=== PATIENT | female | born 1950 | race Caucasian/White ===

== ENCOUNTER → 2016-02-29 | Outpatient (REF) | payer MEDICARE ==
[2016-02-29 20:02] LABS: ALBUMIN 3.9 GM/DL (3.2-5.2); ALKALINE PHOSPHATASE 123 U/L (45-117); ALT/SGPT 27 U/L (12-78); ANION GAP 7 MEQ/L (8-16); AST/SGOT 7 U/L (15-37); BILIRUBIN,TOTAL 0.2 MG/DL (0.2-1.0); BLOOD UREA NITROGEN 31 MG/DL (7-18); CALCIUM LEVEL 10.2 MG/DL (8.8-10.2); CARBON DIOXIDE LEVEL 23 MEQ/L (21-32); CHLORIDE LEVEL 113 MEQ/L (98-107); CREATININE FOR GFR 2.36 MG/DL (0.55-1.02); GLOMERULAR FILTRATION RATE 22.1 (>45); GLUCOSE, FASTING 82 MG/DL (80-110); SODIUM LEVEL 143 MEQ/L (136-145); TOTAL PROTEIN 6.9 GM/DL (6.4-8.2)
[2016-02-29 20:03] LABS: BASO % 0.6 % (0.0-1.0); EOS # 0.4 K/mm3 (0.0-0.50); EOS % 4.8 % (0.0-3.0); LARGE UNSTAINED CELL # 0.1 K/mm3 (0.0-0.4); LARGE UNSTAINED CELL % 1.5 % (0.0-4.0); LYMPH # 1.5 K/mm3 (1.5-4.5); LYMPH % 18.2 % (24.0-44.0); MEAN CORPUSCULAR HEMOGLOBIN 29.5 pg (27.0-33.0); MEAN CORPUSCULAR HGB CONC 31.3 g/dl (32.0-36.5); MEAN CORPUSCULAR VOLUME 94.3 fl (80.0-96.0); MONO # 0.5 K/mm3 (0.0-0.8); MONO % 6.5 % (0.0-5.0); NEUTROPHILS # 5.5 K/mm3 (1.8-7.7); NEUTROPHILS % 68.4 % (36.0-66.0); PLATELET COUNT, AUTOMATED 405 k/mm3 (150-450); POTASSIUM SERUM 5.9 MEQ/L (3.5-5.1); RED CELL DISTRIBUTION WIDTH 13.1 % (11.5-14.5)
[2016-03-02 19:05] LABS: CONTROL LINE INT CTR LINE PRESENT; HIV SCRN NEGATIVE (NEGATIVE); HIV SCRN1 NEGATIVE (NEGATIVE)
== END ==
LOC: M SFHCADAM 11:53
PROVIDERS: ATTEND Family Medicine
DX: D64.9 Anemia, unspecified (principal); E11.9 Type 2 diabetes mellitus without complications; Z11.4 Encounter for screening for human immunodeficiency virus [HIV]; Z23 Encounter for immunization
CPT/HCPCS: 80053; 83036; 85025; 87806; 90471; 90472; 90715; 90732; G0463

== ENCOUNTER → 2016-03-05 | Outpatient (REF) | payer MEDICARE ==
[2016-03-05 12:58] LABS: ALBUMIN 3.9 GM/DL (3.2-5.2); ALBUMIN/GLOBULIN RATIO 1.15 (1.00-1.93); BILIRUBIN,TOTAL 0.2 MG/DL (0.2-1.0); CALCIUM LEVEL 10.4 MG/DL (8.8-10.2); CREATININE FOR GFR 2.28 MG/DL (0.55-1.02); POTASSIUM SERUM 5.1 MEQ/L (3.5-5.1); TOTAL PROTEIN 7.3 GM/DL (6.4-8.2)
== END ==
LOC: M SFHCADAM 09:53
PROVIDERS: ATTEND Family Medicine
DX: N17.9 Acute kidney failure, unspecified (principal)
CPT/HCPCS: 80053; G0463

== ENCOUNTER → 2016-03-10 | Outpatient (REF) | payer MEDICARE ==
[2016-03-10 10:56] LABS: ALBUMIN 3.5 GM/DL (3.2-5.2); ALBUMIN/GLOBULIN RATIO 0.97 (1.00-1.93); BILIRUBIN,TOTAL 0.3 MG/DL (0.2-1.0); CALCIUM LEVEL 9.4 MG/DL (8.8-10.2); CREATININE FOR GFR 2.15 MG/DL (0.55-1.02); GLOMERULAR FILTRATION RATE 24.6 (>45); POTASSIUM SERUM 4.4 MEQ/L (3.5-5.1); TOTAL PROTEIN 7.1 GM/DL (6.4-8.2)
== END | disposition home or self-care (01) ==
LOC: M SFHCADAM 08:45
PROVIDERS: ATTEND Family Medicine
DX: N17.9 Acute kidney failure, unspecified (principal)

== ENCOUNTER → 2016-05-13 | Outpatient (REF) | payer MEDICARE | LOC: M LAB REF 16:31 | PROVIDERS: ATTEND Nurse Practitioner Family | DX: D51.9 Vitamin B12 deficiency anemia, unspecified (principal); E78.1 Pure hyperglyceridemia ==

== ENCOUNTER → 2016-05-26 | Outpatient (REF) | payer MEDICARE ==
[2016-05-26 10:36] LABS: PERCENT SATURATION 15.9 % (13.2-37.4)
[2016-05-26 11:55] LABS: FOLATE 5.3 NG/ML (>5.4)
== END ==
LOC: M LAB REF 10:12
PROVIDERS: ATTEND Nurse Practitioner Family
DX: D64.9 Anemia, unspecified (principal)

== ENCOUNTER → 2016-09-04 | Outpatient (REF) | payer MEDICARE ==
[2016-09-04 14:38] LABS: FERRITIN 527 NG/ML (8-252); PERCENT SATURATION 59.1 % (13.2-37.4); TOTAL IRON BINDING CAPACITY 264 UG/DL (250-450)
[2016-09-04 14:41] LABS: FOLATE > 24.0 NG/ML (>5.4)
== END ==
LOC: M LAB REF 13:40
PROVIDERS: ATTEND Nurse Practitioner Family
DX: D64.9 Anemia, unspecified (principal)

== ENCOUNTER → 2016-10-24 | Outpatient (REF) | payer MEDICARE | LOC: M LAB REF 16:34 | PROVIDERS: ATTEND Nurse Practitioner Family | DX: D51.9 Vitamin B12 deficiency anemia, unspecified (principal) ==

== ENCOUNTER → 2017-04-13 | Outpatient (REF) | payer MEDICARE ==
[2017-04-13 20:00] LABS: VITAMIN B12 LEVEL 692 PG/ML (247-911)
== END ==
LOC: M LAB REF 19:05
DX: D51.9 Vitamin B12 deficiency anemia, unspecified (principal)
CPT/HCPCS: 82607

== ENCOUNTER → 2017-07-16 | Outpatient (REF) | payer MEDICARE ==
[2017-07-17 12:31] LABS: HEPATITIS C VIRUS ABY INDEX < 0.0 INDEX (<0.8)
[2017-07-18 08:06] LABS: LDL DIRECT 149 mg/dL (0-99)
== END ==
LOC: M LAB REF 19:27
DX: Z01.89 Encounter for other specified special examinations (principal); E78.00 Pure hypercholesterolemia, unspecified
CPT/HCPCS: 86803

== ENCOUNTER → 2017-10-26 | Outpatient (REF) | payer MEDICARE ==
[2017-10-27 08:06] LABS: LDL DIRECT 114 mg/dL (0-99)
== END ==
LOC: M LAB REF 12:13
DX: E78.00 Pure hypercholesterolemia, unspecified (principal)
CPT/HCPCS: 83721

== ENCOUNTER → 2017-10-26 | Outpatient (REF) | payer MEDICARE ==
[2017-10-28 14:21] LABS: FERRITIN 655 NG/ML (8-252); IRON (FE) 85 UG/DL (50-170); TOTAL IRON BINDING CAPACITY 247 UG/DL (250-450)
[2017-10-28 17:42] LABS: PERCENT SATURATION 34.4 % (13.2-45.0)
== END ==
LOC: M LAB REF 10-28 12:34
DX: D64.9 Anemia, unspecified (principal)
CPT/HCPCS: 83550

== ENCOUNTER → 2017-11-27 | Outpatient (REF) | payer MEDICARE ==
[2017-11-27 16:26] LABS: C REACTIVE PROTEIN QUANTITATIV 0.86 MG/DL (0.00-0.30)
== END ==
LOC: M LAB REF 15:54
DX: I88.9 Nonspecific lymphadenitis, unspecified (principal)
CPT/HCPCS: 86140

== ENCOUNTER → 2017-11-30 | Outpatient (REF) | payer MEDICARE ==
[2017-11-30 17:39] LABS: C REACTIVE PROTEIN QUANTITATIV < 0.30 MG/DL (0.00-0.30)
== END ==
LOC: M LAB REF 16:43
DX: R79.82 Elevated C-reactive protein (CRP) (principal)
CPT/HCPCS: 86140

== ENCOUNTER → 2017-12-30 | Outpatient (REF) | payer MEDICARE ==
[2017-12-30 18:06] LABS: C REACTIVE PROTEIN QUANTITATIV 0.59 MG/DL (0.00-0.30)
== END ==
LOC: M LAB REF 16:51
DX: R79.82 Elevated C-reactive protein (CRP) (principal)
CPT/HCPCS: 86140

== ENCOUNTER → 2018-02-04 | Outpatient (REF) | payer MEDICARE ==
[2018-02-04 17:30] LABS: FERRITIN 530 NG/ML (8-252); IRON (FE) 78 UG/DL (50-170); PERCENT SATURATION 30.1 % (13.2-45.0); TOTAL IRON BINDING CAPACITY 259 UG/DL (250-450)
[2018-02-04 17:36] LABS: FOLATE > 24.0 NG/ML
[2018-02-04 20:21] LABS: VITAMIN B12 LEVEL 372 PG/ML
[2018-02-06 08:09] LABS: LDL DIRECT 103 mg/dL (0-99)
== END ==
LOC: M LAB REF 16:56
PROVIDERS: ATTEND Nurse Practitioner Family
DX: D64.9 Anemia, unspecified (principal); E78.00 Pure hypercholesterolemia, unspecified

== ENCOUNTER → 2018-02-19 | Outpatient (REF) | payer MEDICARE ==
[2018-02-21 08:06] LABS: HAPTOGLOBIN 242 mg/dL (34-200)
[2018-02-23 00:06] LABS: ANTINUCLEAR ANTIBODIES DIRECT Negative (Negative)
== END ==
LOC: M LAB REF 16:27
PROVIDERS: ATTEND Internal Medicine
DX: D50.9 Iron deficiency anemia, unspecified (principal); R79.82 Elevated C-reactive protein (CRP)

== ENCOUNTER 2018-04-20 14:00 | Emergency (ER) | payer MEDICARE ==
[~2018-04-20] VITALS: Ht 157.5 cm; Wt 75.9 kg
[~2018-04-20 14:00] MED LIST: AMIT25TA PO; ASPI1TAB PO; ATEN100T PO; D31000CA4 PO; FOLI400T PO; IRON27TA2 PO; MAGN1CAP PO; OMEP20CA3 PO; ROSU5TAB4 PO; VITA500C24 PO
[2018-04-20 14:28] LABS: BASO # 0.1 10^3/uL (0.0-0.2); BASO % 0.6 % (0.0-1.0); EOS # 0.2 10^3/uL (0.0-0.50); HEMATOCRIT 32.9 % (36.0-47.0); HEMOGLOBIN 10.8 g/dl (12.0-15.5); LYMPH % 17.6 % (24.0-44.0); MEAN CORPUSCULAR HEMOGLOBIN 31.7 pg (27.0-33.0); MEAN CORPUSCULAR HGB CONC 32.8 g/dl (32.0-36.5); MEAN CORPUSCULAR VOLUME 96.5 fl (80.0-96.0); MONO # 0.7 10^3/uL (0.0-0.8); MONO % 6.6 % (0.0-5.0); NEUTROPHILS # 7.9 10^3/uL (1.8-7.7); PLATELET COUNT, AUTOMATED 270 10^3/uL (150-450); RED BLOOD COUNT 3.41 10^6/uL (4.00-5.40); WHITE BLOOD COUNT 11.1 10^3/uL (4.0-10.0)
[2018-04-20 14:40] LABS: INR 1.08; PROTHROMBIN TIME 14.1 SECONDS (12.1-14.4)
[2018-04-20 14:41] LABS: PARTIAL THROMBOPLASTIN TIME 33.2 SECONDS (25.4-37.6)
[2018-04-20 15:08] LABS: BLOOD UREA NITROGEN 22 MG/DL (7-18); CALCIUM LEVEL 8.9 MG/DL (8.8-10.2); CARBON DIOXIDE LEVEL 29 MEQ/L (21-32); CHLORIDE LEVEL 105 MEQ/L (98-107); CK-MB VALUE MASS < 1.0 NG/ML (<3.6); CPK CREATINE PHOSPHOKINASE 30 U/L (26-192); CREATININE FOR GFR 1.48 MG/DL (0.55-1.30); GLOMERULAR FILTRATION RATE 37.4 (>45); GLUCOSE, FASTING 166 MG/DL (70-100); MB/CK RELATIVE INDEX 3.33 (< OR =4); POTASSIUM SERUM 4.6 MEQ/L (3.5-5.1); SODIUM LEVEL 140 MEQ/L (136-145); TROPONIN I < 0.02 NG/ML (< 0.10)
--- NOTE | 2018-04-20 15:41 | REP ---
CT study of the cervical spine without contrast: History: Trauma. Technique: Helical scanning is acquired and overlapping 2 mm high resolution axial images were generated and reviewed at bone and soft tissue window settings. Coronal and sagittal multiplanar re-formations images are generated. CT findings: There is no evidence of cervical spine element fracture. No skull base fracture is seen. Cervical vertebral body heights are preserved. There is some straightening. Degenerative disc changes are seen at C3-4 and to a lesser extent at the lower cervical levels. Mild osteoarthritic changes are seen at the articulation between the dens and the anterior arch of C1. Alignment is normal. Facet joints are normally aligned bilaterally at each cervical level on multiplanar re-formations images. There is no evidence of intraspinal or paraspinal hematoma. No extra vertebral abnormality is seen. Impression: There are mild degenerative spondylosis changes. Otherwise negative CT study of the cervical spine without contrast. No fracture seen. Electronically Signed by Dallas Beltran MD 04/20/2018 03:33 P
--- NOTE | 2018-04-20 15:46 | REP ---
CT brain without contrast: History: CVA. No comparison brain CT. CT findings: Digital preliminary junior oracle dba radiographs demonstrate that the patient is edentulous. Bony calvarium appears intact. There is partial opacification and mucosal thickening in the sphenoid sinuses bilaterally, right more so than left. Visualized paranasal sinuses are otherwise clear. There is some vascular calcification in the carotid siphons bilaterally. Bony calvarium is intact. On soft-tissue window settings, there is no evidence of intracranial hemorrhage. There is minimal diffuse cerebral atrophy. There is no evidence of mass, extra-axial fluid collection, cortical or deep white matter acute infarction. Impression: Minimal diffuse cerebral atrophy. Vascular calcification. Sphenoid sinusitis changes. No acute intracranial abnormality. Electronically Signed by Dallas Beltran MD 04/20/2018 04:01 P
--- NOTE | 2018-04-20 15:50 | REP ---
CT thoracic spine without contrast: History: Trauma. Findings: Thoracic vertebral body heights are preserved. There is diffuse degenerative disc disease with spurring anteriorly most pronounced to the right of midline. No paravertebral edema or soft tissue mass is seen. No intraspinal or paraspinal hematoma is appreciated. No fracture or collapse is seen. Impression: Degenerative spondylosis changes. No traumatic abnormality. Electronically Signed by Dallas Beltran MD 04/20/2018 03:41 P
--- NOTE | 2018-04-20 15:52 | REP ---
CT lumbar spine without contrast: History: Trauma. Comparison is made with lumbar spine MR images from April of 2014. CT findings: In the interval since the 2015 MRI study, the patient has undergone transpedicle screw placement and interconnecting dorsal spine fixation from L4-S1 bilaterally. Laminectomies have been performed at L5 and S1. There is no evidence of fracture or collapse. No malalignment is seen. There are mild discogenic spurs anteriorly at the T12-L1 and T11-12. The visualized upper sacrum appears intact. There is minimal osteoarthritic facet disease in the lumbar spine. No intraspinal or paraspinal fluid collection is seen. Some vascular calcifications noted. Impression: Status post L5 and S1 laminectomy. Transpedicle screw judson dorsal fixation L4-S1 bilaterally. No traumatic abnormality. Electronically Signed by Dallas Beltran MD 04/20/2018 04:01 P
--- NOTE | 2018-04-20 15:53 | REP ---
Chest x-ray: Two views. History: Shortness of breath. No comparison chest x-ray. Findings: EKG monitoring electrodes are seen. The lungs are symmetrically aerated and clear. The heart size is borderline. Aorta is calcific. There are mild degenerative changes in the thoracic spine. Pulmonary vasculature is not increased. The pleural angles are sharp. Impression: No acute disease. Electronically Signed by Dallas Beltran MD 04/20/2018 04:01 P
[2018-04-20 16:20] VITALS: BP 139/63
--- NOTE | 2018-04-21 09:05 | ECGEPIP ---
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
== END 2018-04-20 16:30 | disposition left against medical advice (07) ==
LOC: EDBD 14:00 → M ED 14:00
DX: M62.81 Muscle weakness (generalized) (principal); Z53.21 Procedure and treatment not carried out due to patient leaving prior to being seen by health care provider; I45.4 Nonspecific intraventricular block; I25.10 Atherosclerotic heart disease of native coronary artery without angina pectoris; E11.9 Type 2 diabetes mellitus without complications; I10 Essential (primary) hypertension; K21.9 Gastro-esophageal reflux disease without esophagitis; M19.90 Unspecified osteoarthritis, unspecified site; E55.9 Vitamin D deficiency, unspecified; D64.9 Anemia, unspecified; Z72.0 Tobacco use; J01.30 Acute sphenoidal sinusitis, unspecified; I67.2 Cerebral atherosclerosis; M43.26 Fusion of spine, lumbar region; M47.814 Spondylosis without myelopathy or radiculopathy, thoracic region; Z79.82 Long term (current) use of aspirin; Z79.899 Other long term (current) drug therapy; Z88.0 Allergy status to penicillin

== ENCOUNTER → 2018-06-28 | Outpatient (REF) | payer MEDICARE ==
[~2018-06-28] MED LIST changes: -ASPI1TAB PO; +ASPI81TA26 PO; +ATEN25TA PO; +DULO1CAP PO
== END ==
LOC: M SMT 18:21
PROVIDERS: ATTEND Nurse Practitioner Women's Health
DX: R31.0 Gross hematuria (principal)

== ENCOUNTER → 2018-06-28 | Outpatient (CLI) | payer MEDICARE ==
[2018-06-28 17:39] LABS: CALCIUM LEVEL 9.7 MG/DL (8.8-10.2); CREATININE FOR GFR 1.43 MG/DL (0.55-1.30); POTASSIUM SERUM 5.4 MEQ/L (3.5-5.1)
== END ==
LOC: M SMT 15:32
PROVIDERS: ATTEND Nurse Practitioner Women's Health
DX: R31.0 Gross hematuria (principal)

== ENCOUNTER → 2018-07-01 | Outpatient (REF) | payer MEDICARE ==
[2018-07-01 13:33] LABS: AMORPHOUS SEDIMENT SMALL (NEGATIVE); APPEARANCE, URINE HAZY (CLEAR); BACTERIA, URINE AUTO 1+ (NEGATIVE); BILIRUBIN, URINE AUTO NEGATIVE (NEGATIVE); BLOOD, URINE BLOOD NEGATIVE (NEGATIVE); COLOR, URINE YELLOW (YELLOW); GLUCOSE, URINE (UA) AUTO NEGATIVE (NEGATIVE); KETONE, URINE AUTO NEGATIVE (NEGATIVE); LEUKOCYTE ESTERASE, URINE AUTO TRACE (NEGATIVE); MUCUS, URINE SMALL (NEGATIVE); NITRITE, URINE AUTO NEGATIVE (NEGATIVE); PROTEIN, URINE AUTO NEGATIVE (NEGATIVE); RBC, URINE AUTO 1 /HPF (0-3); SQUAMOUS EPITHELIAL CELL UR AU 7 /HPF (0-6); UROBILINOGEN, URINE AUTO 0.2 mg/dL (0.0-2.0); WBC, URINE AUTO 7 /HPF (0-3)
== END ==
LOC: M SMT 13:01
PROVIDERS: ATTEND Nurse Practitioner Women's Health
DX: R31.29 Other microscopic hematuria (principal)

== ENCOUNTER → 2018-08-16 | Outpatient (REF) | payer MEDICARE ==
[2018-08-16 13:27] LABS: BASO # 0.1 10^3/uL (0.0-0.2); BASO % 0.6 % (0.0-1.0); EOS # 0.2 10^3/uL (0.0-0.50); EOS % 1.2 % (0.0-3.0); HEMATOCRIT 36.3 % (36.0-47.0); HEMOGLOBIN 11.3 g/dl (12.0-15.5); LYMPH # 2.2 10^3/uL (1.5-4.5); LYMPH % 12.8 % (24.0-44.0); MEAN CORPUSCULAR HEMOGLOBIN 30.2 pg (27.0-33.0); MEAN CORPUSCULAR HGB CONC 31.1 g/dl (32.0-36.5); MEAN CORPUSCULAR VOLUME 97.1 fl (80.0-96.0); MONO % 5.7 % (0.0-5.0); NEUTROPHILS # 13.3 10^3/uL (1.8-7.7); NEUTROPHILS % 76.5 % (36.0-66.0); PLATELET COUNT, AUTOMATED 430 10^3/uL (150-450); RED BLOOD COUNT 3.74 10^6/uL (4.00-5.40); WHITE BLOOD COUNT 17.3 10^3/uL (4.0-10.0)
[2018-08-16 13:45] LABS: ALT/SGPT 23 U/L (12-78); BILIRUBIN,TOTAL 0.1 MG/DL (0.2-1.0); BLOOD UREA NITROGEN 21 MG/DL (7-18); CALCIUM LEVEL 9.2 MG/DL (8.8-10.2); CARBON DIOXIDE LEVEL 30 MEQ/L (21-32); CHLORIDE LEVEL 103 MEQ/L (98-107); CREATININE FOR GFR 1.39 MG/DL (0.55-1.30); GLOMERULAR FILTRATION RATE 40.3 (>45); GLUCOSE, FASTING 209 MG/DL (70-100); POTASSIUM SERUM 4.6 MEQ/L (3.5-5.1); RHEUMATOID FACTOR QUANT < 10.0 IU/ML (<15.0); SODIUM LEVEL 139 MEQ/L (136-145); THYROID STIMULATING HORMONE 0.896 uIU/ML (0.358-3.740); TOTAL PROTEIN 7.4 GM/DL (6.4-8.2)
[2018-08-16 13:52] LABS: ERYTHROCYTE SEDIMENTATION RATE 49 mm/hr (0-30)
[2018-08-17 14:31] LABS: ANTINUCLEAR ANTIBODIES DIRECT Negative (Negative)
== END ==
LOC: M LABNEURO 09:33
PROVIDERS: ATTEND Psychiatry & Neurology Neurology
DX: R55 Syncope and collapse (principal); Z79.82 Long term (current) use of aspirin

== ENCOUNTER → 2018-10-21 | Outpatient (CLI) | payer MEDICARE ==
[~2018-10-21] MED LIST changes: -DULO1CAP PO; +DULO1CAP4 PO; -OMEP20CA3 PO; +OMEP20CA4 PO; -ROSU5TAB4 PO; +ROSU5TAB5 PO
--- NOTE | 2018-10-21 12:12 | REP ---
Clinical: Stenosis . Technique: Cummings scale and color Doppler evaluation using linear high frequency transducer Findings: Two-dimensional cummings scale and color images demonstrate mixed atheromatous plaquing without obvious focal areas of narrowing or obvious turbulent flow. Color Doppler interrogation demonstrates arterial wave patterns and mild/moderate elements of spectral broadening. Normal flow direction is appreciated in the bilateral vertebral arteries. RIGHT (cm/s) LEFT (cm/s) ICA peak systolic velocity 292 251 ICA diastolic velocity 73.6 45.5 ECA peak systolic velocity 199 222 CCA peak systolic velocity 155 145 ICA/CCA ratio 1.8 1.7 Impression: Based on velocities and set standards, narrowing approaching 70% stenosis would be suggested although these findings are not corroborated by images or ICA/CC ratios. Physical examination is recommended and MRA should be considered for more definitive evaluation. Electronically Signed by Moustapha Chang MD 10/21/2018 12:04 P
--- NOTE | 2018-10-21 12:24 | REP ---
Bilateral lower extremity arterial Doppler ultrasound: History: Claudication. Peripheral vascular disease. Findings: Ankle brachial indices are measured at 1.0 on the right and 0.6 on the left. The ankle brachial index on the left is low. Normal triphasic and biphasic waveforms are noted throughout the lower extremities bilaterally with the exception of the distal portion of the posterior tibial artery on the right which demonstrates monophasic wave form. Atherosclerotic plaquing is noted. No evidence of high-grade stenosis or occlusion seen in either leg. Right lower extremity arterial Doppler velocity chart: Right CF A 149 cm/S Profunda 160 Proximal SFA 166 Mid SFA 136 Distal SFA 151 Popliteal 133 Proximal AT A 51 Tibioperoneal trunk 154 Proximal CLAMP OPERATOR 62 Distal CLAMP OPERATOR 24 Distal AT A 41 Left lower extremity arterial Doppler velocity chart: Left CF A 137 cm/S Profunda 174 Proximal SFA 147 Mid SFA 141 Distal SFA 165 Popliteal 102 Proximal AT A 71 Tibioperoneal trunk 87 Proximal CLAMP OPERATOR 81 Distal CLAMP OPERATOR 36 Distal AT A 66 Electronically Signed by Dallas Beltran MD 10/21/2018 12:15 P
== END ==
LOC: M RAD 09:51
PROVIDERS: ATTEND Surgery Vascular Surgery
DX: I70.213 Atherosclerosis of native arteries of extremities with intermittent claudication, bilateral legs (principal); I65.23 Occlusion and stenosis of bilateral carotid arteries

== ENCOUNTER → 2019-02-10 | Outpatient (REF) | payer MEDICARE ==
[~2019-02-10] MED LIST changes: +OMEP-172 PO; -OMEP20CA4 PO; +PLAV1TAB2 PO
[2019-02-10 19:52] LABS: FERRITIN 54 NG/ML (8-252); IRON (FE) 69 UG/DL (50-170); TOTAL IRON BINDING CAPACITY 345 UG/DL (250-450)
[2019-02-10 19:59] LABS: FOLATE > 24.0 NG/ML; VITAMIN B12 LEVEL 311 PG/ML
[2019-02-15 10:06] LABS: Methylmalonic Acid 1355 nmol/L (0-378)
== END ==
LOC: M LAB REF 17:10
PROVIDERS: ATTEND Internal Medicine Nephrology
DX: D64.9 Anemia, unspecified (principal)

== ENCOUNTER → 2019-03-10 | Outpatient (REF) | payer MEDICARE ==
[~2019-03-10] MED LIST changes: +CYAN1000VL IM; +EQL400CA9 PO; +MAGN400T3 PO; -OMEP-172 PO; +OMEP1CAP73 PO
[2019-03-11 13:12] LABS: TOTAL PROTEIN,RANDOM URINE 25.9 MG/DL (0.0-12.0)
== END ==
LOC: M LAB REF 12:06
PROVIDERS: ATTEND Internal Medicine Hematology & Oncology
DX: D64.9 Anemia, unspecified (principal)

== ENCOUNTER → 2019-07-21 | Outpatient (REF) | payer MEDICARE ==
[2019-07-21 18:00] LABS: PERCENT SATURATION 43.6 % (13.2-45.0)
== END ==
LOC: M LAB REF 17:04
PROVIDERS: ATTEND Internal Medicine Nephrology
DX: D51.9 Vitamin B12 deficiency anemia, unspecified (principal)

== ENCOUNTER → 2019-08-24 | Outpatient (REF) | payer MEDICARE | LOC: M LAB REF 08:48 | PROVIDERS: ATTEND Physician Assistant | DX: L57.0 Actinic keratosis (principal) ==

== ENCOUNTER → 2019-10-14 | Outpatient (CLI) | payer MEDICARE ==
[2019-10-14 15:53] LABS: BASO # 0.1 10^3/uL (0.0-0.2); BASO % 0.6 % (0.0-1.0); EOS # 0.2 10^3/uL (0.0-0.5); EOS % 2.1 % (0.0-3.0); HEMATOCRIT 30.5 % (36.0-47.0); HEMOGLOBIN 9.1 g/dl (12.0-15.5); LYMPH # 1.4 10^3/uL (1.5-5.0); LYMPH % 15.7 % (24.0-44.0); MEAN CORPUSCULAR HEMOGLOBIN 26.9 pg (27.0-33.0); MEAN CORPUSCULAR HGB CONC 29.8 g/dl (32.0-36.5); MEAN CORPUSCULAR VOLUME 90.2 fl (80.0-96.0); MONO # 0.5 10^3/uL (0.0-0.8); MONO % 6.2 % (0.0-5.0); NEUTROPHILS # 6.4 10^3/uL (1.5-8.5); NEUTROPHILS % 73.6 % (36.0-66.0); PLATELET COUNT, AUTOMATED 344 10^3/uL (150-450); RED BLOOD COUNT 3.38 10^6/uL (4.00-5.40); WHITE BLOOD COUNT 8.7 10^3/uL (4.0-10.0)
[2019-10-14 16:03] LABS: ALBUMIN 3.6 GM/DL (3.2-5.2); ALT/SGPT 15 U/L (12-78); BILIRUBIN,TOTAL 0.1 MG/DL (0.2-1.0); BLOOD UREA NITROGEN 21 MG/DL (7-18); CARBON DIOXIDE LEVEL 29 MEQ/L (21-32); CHLORIDE LEVEL 105 MEQ/L (98-107); CREATININE FOR GFR 1.71 MG/DL (0.55-1.30); GLOMERULAR FILTRATION RATE 31.6 (>45); GLUCOSE, FASTING 175 MG/DL (70-100); POTASSIUM SERUM 4.5 MEQ/L (3.5-5.1); SODIUM LEVEL 139 MEQ/L (136-145); TOTAL PROTEIN 6.5 GM/DL (6.4-8.2)
[2019-10-14 16:25] LABS: HEPATITIS B SURFACE ANTIGEN NEGATIVE (NEGATIVE)
[2019-10-14 16:51] LABS: HEPATITIS C VIRUS ABY INDEX 0.3 INDEX (<0.8)
[2019-10-14 16:53] LABS: HEPATITIS B CORE ANTIBODY IGM NEGATIVE (NEGATIVE)
[2019-10-14 16:54] LABS: HEPATITIS A ANTIBODY IGM NEGATIVE (NEGATIVE)
--- NOTE | 2019-11-14 10:10 | REP ---
CHEST X-RAY CLINICAL: Granulomatous disorder of the skin. TECHNIQUE: PA and lateral. COMPARISON: 04/30/2018. FINDINGS: Mediastinum and cardiac silhouette normal. Lung benitez clear. No focal consolidation, effusion, or pneumothorax. Skeletal structures demonstrate age- related degenerative changes to the thoracic spine. Evidence for prior right neck surgery. IMPRESSION: No acute cardiopulmonary process appreciated. MTDD
== END ==
LOC: M LAB 13:53
PROVIDERS: ATTEND Physician Assistant
DX: L92.9 Granulomatous disorder of the skin and subcutaneous tissue, unspecified (principal); Z79.899 Other long term (current) drug therapy

== ENCOUNTER → 2019-10-21 | Outpatient (REF) | payer MEDICARE ==
[2019-10-26 13:01] LABS: TOTAL PROTEIN 6.9 GM/DL (6.4-8.2)
[2019-10-27 14:58] LABS: ALBUMIN 4.28 GM/DL (3.29-5.55); ALBUMIN % 62.1 % (55.8-66.1); ALPHA-1-GLOBULIN % 5.8 % (2.9-4.9); ALPHA-2-GLOBULINS 0.81 GM/DL (0.42-0.99); ALPHA-2-GLOBULINS % 11.8 % (7.1-11.8); BETA-1-GLOBULINS 0.45 GM/DL (0.28-0.60); BETA-1-GLOBULINS % 6.5 % (4.7-7.2); BETA-2-GLOBULINS % 4.3 % (3.2-6.5); GAMMA GLOBULIN % 9.5 % (11.1-18.8); GAMMA GLOBULINS 0.66 GM/DL (0.65-1.58)
[2019-10-27 18:07] LABS: FREE LAMBDA LIGHT CHAINS SERUM 30.4 mg/L (5.7-26.3); KAPPA/LAMBDA RATIO SERUM 0.92 (0.26-1.65)
== END ==
LOC: M LAB REF 11:30
PROVIDERS: ATTEND Internal Medicine Nephrology
DX: D51.9 Vitamin B12 deficiency anemia, unspecified (principal)

== ENCOUNTER → 2019-11-22 | Outpatient (REF) | payer MEDICARE | LOC: M LAB REF 17:34 | PROVIDERS: ATTEND Internal Medicine Nephrology | DX: D50.9 Iron deficiency anemia, unspecified (principal); E53.8 Deficiency of other specified B group vitamins ==

== ENCOUNTER → 2019-11-23 | Outpatient (REF) | payer MEDICARE ==
[2019-11-23 18:37] LABS: PERCENT SATURATION 44.2 % (13.2-45.0)
== END ==
LOC: M LAB REF 17:30
PROVIDERS: ATTEND Internal Medicine Nephrology
DX: D64.9 Anemia, unspecified (principal)

== ENCOUNTER 2019-11-24 07:54 | Outpatient (CLI) | payer MEDICARE ==
[~2019-11-24] VITALS: Ht 157.5 cm; Wt 81.2 kg
[~2019-11-24 07:54] MED LIST changes: +diphenhydrAMINE 25MG CAP PO SCH
[2019-11-24 08:05] VITALS: BP 133/57
[2019-11-24 08:40] VITALS: BP 133/57
[2019-11-24 08:55] VITALS: BP 133/59
[2019-11-24 09:55] VITALS: BP 158/71
[2019-11-24 10:12] VITALS: BP 166/70
[2019-11-24 10:29] VITALS: BP 159/63
== END 2019-11-24 10:25 | disposition home or self-care (01) ==
LOC: M INFU 07:54
PROVIDERS: ATTEND Internal Medicine Nephrology
DX: D50.9 Iron deficiency anemia, unspecified (principal); E53.8 Deficiency of other specified B group vitamins
CPT/HCPCS: 36430; P9016

== ENCOUNTER → 2019-11-26 | Outpatient (CLI) | payer MEDICARE ==
[~2019-11-26] MED LIST changes: -diphenhydrAMINE 25MG CAP PO SCH
== END ==
LOC: M LABSMTC 11:24
PROVIDERS: ATTEND Anesthesiology
DX: Z01.812 Encounter for preprocedural laboratory examination (principal); Z20.828 Contact with and (suspected) exposure to other viral communicable diseases
CPT/HCPCS: C9803; U0003

== ENCOUNTER 2019-12-01 12:47 | Day surgery (SDC) | payer MEDICARE ==
[~2019-12-01] VITALS: Ht 157.5 cm; Wt 79.3 kg
[~2019-12-01 12:47] MED LIST changes: +LIDOCAINE 2% 100MG/5ML SDV (FOR ANES.) As Ordered ONE; +NS 1,000 ML IV ONE; +propofoL 200 MG/20 ML VIAL As Ordered ONE
--- NOTE | 2019-12-01 14:20 | ROOR ---
Patient Name: Olga Reyez Procedure Date: 12/01/2019 2:00 PM Date of : 1950 Age: 69 Room: [facility] Gender: Female Note Status: Finalized Procedure: Upper GI endoscopy Indications: Iron deficiency anemia, Exclusion of intestinal malabsorption Providers: Ty JOE MD Referring MD: Bhavana STACY MD Requesting Provider: Medicines: Monitored Anesthesia Care Complications: No immediate complications. Procedure: Pre-Anesthesia Assessment: - The heart rate, respiratory rate, oxygen saturations, blood pressure, adequacy of pulmonary ventilation, and response to care were monitored throughout the procedure. The Endoscope was introduced through the mouth, and advanced to the second part of duodenum. The upper GI endoscopy was accomplished without difficulty. The patient tolerated the procedure well. Findings: The examined esophagus was normal. The entire examined stomach was normal. A single 1-2 mm angioectasia without bleeding was found in the second portion of the duodenum. For hemostasis, one hemostatic clip was successfully placed. The examined duodenum was otherwise normal. Biopsies for histology were taken with a cold forceps for evaluation of celiac disease. Impression: - Normal esophagus. - Normal stomach. - A single tiny non-bleeding angioectasia in the duodenum. (of dubious significance). Clip was placed. - Otherwise normal examined duodenum. Biopsied. Recommendation: - Observe patient's clinical course. Ty Joe MD Ty JOE MD 12/01/2019 2:20:03 PM Electronically signed by Ty JOE MD Number of Addenda: 0 Note Initiated On: 12/01/2019 2:00 PM Estimated Blood Loss: Estimated blood loss: none.
[2019-12-01] MEDS ORDERED: propofoL 200 MG/20 ML VIAL As Ordered ONE (14:39)
--- NOTE | 2019-12-01 14:50 | ROOR ---
Patient Name: Olga Reyez Procedure Date: 12/01/2019 2:01 PM Date of : 1950 Age: 69 Room: [facility] Gender: Female Note Status: Finalized Procedure: Colonoscopy Indications: Hematochezia Providers: Ty JOE MD Referring MD: Bhavana STACY MD Requesting Provider: Medicines: Monitored Anesthesia Care Complications: No immediate complications. Procedure: Pre-Anesthesia Assessment: - The heart rate, respiratory rate, oxygen saturations, blood pressure, adequacy of pulmonary ventilation, and response to care were monitored throughout the procedure. The Colonoscope was introduced through the anus and advanced to the terminal ileum, with identification of the appendiceal orifice and IC valve. The colonoscopy was performed without difficulty. The patient tolerated the procedure well. The quality of the bowel preparation was 20 percent obscured. Findings: The perianal and digital rectal examinations were normal. Two sessile polyps were found in the hepatic flexure. The polyps were 5 to 6 mm in size. These polyps were removed with a cold snare. Resection and retrieval were complete. To prevent bleeding after the polypectomy, four hemostatic clips were successfully placed. Multiple medium-mouthed diverticula were found in the sigmoid colon. Internal hemorrhoids were found during retroflexion. The hemorrhoids were medium-sized. There was a small lipoma, in the ascending colon. The exam was otherwise without abnormality on direct and retroflexion views. Impression: - Suboptimal colon prep. - Two 5 to 6 mm polyps at the hepatic flexure, removed with a cold snare. Resected and retrieved. Clips were placed. - Moderate diverticulosis in the sigmoid colon. - Internal hemorrhoids. - Small lipoma in the ascending colon. - The examination was otherwise normal on direct and retroflexion views. Recommendation: - Repeat colonoscopy in 2 years because the bowel preparation was suboptimal. Ty Joe MD Ty JOE MD 12/01/2019 2:49:58 PM Electronically signed by Ty JOE MD Number of Addenda: 0 Note Initiated On: 12/01/2019 2:01 PM Estimated Blood Loss: Estimated blood loss: none.
[2019-12-01 15:15] VITALS: BP 143/66
== END 2019-12-01 15:20 | disposition home or self-care (01) ==
LOC: M OPP 12:47
PROVIDERS: ATTEND Internal Medicine Gastroenterology
DX: D12.3 Benign neoplasm of transverse colon (principal); D17.5 Benign lipomatous neoplasm of intra-abdominal organs; K64.8 Other hemorrhoids; K57.30 Diverticulosis of large intestine without perforation or abscess without bleeding; K92.1 Melena; K31.819 Angiodysplasia of stomach and duodenum without bleeding; D50.9 Iron deficiency anemia, unspecified; G57.30 Lesion of lateral popliteal nerve, unspecified lower limb; I51.9 Heart disease, unspecified; Z79.82 Long term (current) use of aspirin; Z79.899 Other long term (current) drug therapy; Z88.0 Allergy status to penicillin

== ENCOUNTER → 2019-12-05 | Outpatient (REF) | payer MEDICARE ==
[~2019-12-05] MED LIST changes: -LIDOCAINE 2% 100MG/5ML SDV (FOR ANES.) As Ordered ONE; -NS 1,000 ML IV ONE; -propofoL 200 MG/20 ML VIAL As Ordered ONE
== END ==
LOC: M LAB REF 12:00
PROVIDERS: ATTEND Internal Medicine
DX: D64.9 Anemia, unspecified (principal)

== ENCOUNTER 2019-12-26 13:08 | Outpatient (CLI) | payer MEDICARE ==
[~2019-12-26] VITALS: Ht 157.5 cm; Wt 58.1 kg
[~2019-12-26 13:08] MED LIST changes: +ALBUTEROL SULFATE 2.5 MG/0.5 ML INH NEB SOLN INH PRN; +EPINEPHrine INJ 1 MG/ML 1ML AMP IM PRN; +FERRIC CARBOXYMALTOSE INJ 750 MG in NS 250 ML IV ONE; +NS 1,000 ML IV SCH; +diphenhydrAMINE 50MG/ML VIAL (J1200) IV PRN; +methylPREDNISolone 125MG 2ML VIAL IV PRN
[2019-12-26 13:10] VITALS: BP 144/65
[2019-12-26 14:52] VITALS: BP 153/65
== END 2019-12-26 15:15 | disposition home or self-care (01) ==
LOC: M INFU 13:08
PROVIDERS: ATTEND Internal Medicine Nephrology
DX: D64.9 Anemia, unspecified (principal); Z88.0 Allergy status to penicillin
CPT/HCPCS: 96365; J1439

== ENCOUNTER 2020-01-02 12:47 | Outpatient (CLI) | payer MEDICARE ==
[~2020-01-02] VITALS: Ht 157.5 cm; Wt 70.7 kg
[~2020-01-02 12:47] MED LIST changes: -ALBUTEROL SULFATE 2.5 MG/0.5 ML INH NEB SOLN INH PRN; -EPINEPHrine INJ 1 MG/ML 1ML AMP IM PRN; -FERRIC CARBOXYMALTOSE INJ 750 MG in NS 250 ML IV ONE; -NS 1,000 ML IV SCH; -diphenhydrAMINE 50MG/ML VIAL (J1200) IV PRN; -methylPREDNISolone 125MG 2ML VIAL IV PRN
[2020-01-02] MEDS ORDERED: methylPREDNISolone 125MG 2ML VIAL IV PRN (13:00)
[2020-01-02] MEDS ORDERED: FERRIC CARBOXYMALTOSE INJ 750 MG in NS 250 ML IV ONE (13:00)
[2020-01-02] MEDS ORDERED: diphenhydrAMINE 50MG/ML VIAL (J1200) IV PRN (13:00)
[2020-01-02] MEDS ORDERED: NS 1,000 ML IV SCH (13:00)
[2020-01-02] MEDS ORDERED: ALBUTEROL SULFATE 2.5 MG/0.5 ML INH NEB SOLN INH PRN (13:00)
[2020-01-02] MEDS ORDERED: EPINEPHrine INJ 1 MG/ML 1ML AMP IM PRN (13:00)
[2020-01-02 13:11] VITALS: BP 126/78
[2020-01-02 14:44] VITALS: BP 145/64
== END 2020-01-02 14:45 | disposition home or self-care (01) ==
LOC: M INFU 12:47
PROVIDERS: ATTEND Internal Medicine Nephrology
DX: D64.9 Anemia, unspecified (principal); Z88.0 Allergy status to penicillin
CPT/HCPCS: 96365; J1439

== ENCOUNTER → 2020-01-25 | Outpatient (CLI) | payer MEDICARE ==
--- NOTE | 2020-01-25 15:08 | REP ---
INDICATION: OTHER NON SPECIFIC ABNORMAL FINDING OF LUNG FIELD. COMPARISON: Chest CT dated 07/19/2018, chest CT dated 01/20/[address] containing lower lung benitez dated 07/05/2018. TECHNIQUE: The study is performed without IV contrast. FINDINGS: There is a 4 mm lung nodule anteriorly in the right upper lobe on image 27, 18 change from both prior chest CTs. Was not included in the prior abdomen CT. There is a 6 mm lung nodule in the right upper lobe on image 31, unchanged from both prior chest CTs. And also was not included in the comparison abdomen CT. There is a 4 mm lung nodule in the left lower lobe on image 48. This is unchanged from all prior studies. There is a 7 mm lung nodule in the right middle lobe posteriorly No new lung nodules are identified. There are no infiltrates or pleural effusions. The unenhanced thoracic aorta is unremarkable. Cardiac size is normal. There is calcified vascular atheroma in the coronary arteries. The visualized upper abdominal contents are unremarkable except for the adrenals are not included in its entirety. On image 44. This is unchanged from all prior studies. IMPRESSION: There are 4 stable lung nodules as described. <Electronically signed by Reid Morales > 01/25/20 [id number]
== END ==
LOC: M RAD 10:01
PROVIDERS: ATTEND Internal Medicine Pulmonary Disease
DX: R91.8 Other nonspecific abnormal finding of lung field (principal)

== ENCOUNTER 2020-03-08 08:59 | Outpatient (CLI) | payer MEDICARE ==
[~2020-03-08] VITALS: Ht 157.5 cm; Wt 79.8 kg
[~2020-03-08 08:59] MED LIST changes: +ALBUTEROL SULFATE 2.5 MG/0.5 ML INH NEB SOLN INH PRN; -AMIT25TA PO; +AMIT25TA17 PO; +EPINEPHrine INJ 1 MG/ML 1ML AMP IM PRN; +diphenhydrAMINE 50MG/ML VIAL (J1200) IV PRN; +methylPREDNISolone 125MG 2ML VIAL IV PRN
[2020-03-08] MEDS ORDERED: FERRIC CARBOXYMALTOSE INJ 750 MG, VIAL MATE ADAPTER 1 EACH in NS 250 ML IV ONE (09:00)
[2020-03-08] MEDS ORDERED: NS 1,000 ML IV SCH (09:00)
[2020-03-08] MEDS ORDERED: diphenhydrAMINE 50MG/ML VIAL (J1200) IV ONE (09:00)
[2020-03-08 09:18] VITALS: BP 119/56
[2020-03-08 11:05] VITALS: BP 128/58
== END 2020-03-08 11:05 | disposition home or self-care (01) ==
LOC: M INFU 08:59
PROVIDERS: ATTEND Internal Medicine Nephrology
DX: D50.9 Iron deficiency anemia, unspecified (principal); Z88.0 Allergy status to penicillin
CPT/HCPCS: 96365; J1439

== ENCOUNTER 2020-03-15 08:55 | Outpatient (CLI) | payer MEDICARE ==
[~2020-03-15] VITALS: Ht 157.5 cm; Wt 79.8 kg
[2020-03-15] MEDS ORDERED: FERRIC CARBOXYMALTOSE INJ 750 MG, VIAL MATE ADAPTER 1 EACH in NS 250 ML IV ONE (09:00)
[2020-03-15] MEDS ORDERED: diphenhydrAMINE 50MG/ML VIAL (J1200) IV ONE (09:00)
[2020-03-15] MEDS ORDERED: NS 1,000 ML IV SCH (09:00)
[2020-03-15 09:08] VITALS: BP 110/54
[2020-03-15 10:18] VITALS: BP 138/60
== END 2020-03-15 10:20 | disposition home or self-care (01) ==
LOC: M INFU 08:55
PROVIDERS: ATTEND Internal Medicine Nephrology
DX: D50.9 Iron deficiency anemia, unspecified (principal); Z88.0 Allergy status to penicillin
CPT/HCPCS: 96365; J1439

== ENCOUNTER 2020-06-30 10:50 | Emergency (ER) | payer MEDICARE ==
[~2020-06-30] VITALS: Ht 157.5 cm; Wt 76.5 kg
[~2020-06-30 10:50] MED LIST changes: -ALBUTEROL SULFATE 2.5 MG/0.5 ML INH NEB SOLN INH PRN; -EPINEPHrine INJ 1 MG/ML 1ML AMP IM PRN; -FOLI400T PO; +FOLI400T13 PO; -diphenhydrAMINE 50MG/ML VIAL (J1200) IV PRN; -methylPREDNISolone 125MG 2ML VIAL IV PRN
[2020-06-30] MEDS ORDERED: OXCA150T21 PO (10:57)
[2020-06-30] MEDS ORDERED: ACETAMINOPHEN 500 MG TAB PO ONE (11:20)
--- NOTE | 2020-06-30 12:07 | REP ---
INDICATION: L wrist pain s/p fall COMPARISON: None. TECHNIQUE: Four views left wrist. FINDINGS: There is no evidence of acute fracture, dislocation, or intrinsic bone disease.There is slight narrowing of the radiocarpal joint. IMPRESSION: No fracture or dislocation. <Electronically signed by Reid Cummings > 06/30/20 [id number]
--- NOTE | 2020-06-30 12:08 | REP ---
INDICATION: fall COMPARISON: None. TECHNIQUE: Four views left elbow. FINDINGS: There is no evidence of acute fracture, dislocation, or intrinsic bone disease.There is mild tendinous calcification along the lateral humeral epicondyle. No joint effusion is visualized. IMPRESSION: No fracture or dislocation. <Electronically signed by Reid Cummings > 06/30/20 [id number]
--- NOTE | 2020-06-30 12:12 | REP ---
INDICATION: L hand pain s/p fall COMPARISON: None. TECHNIQUE: Four views left hand. FINDINGS: There is no evidence of acute fracture, dislocation, or intrinsic bone disease.There are mild degenerative changes at the distal interphalangeal joints. IMPRESSION: No fracture or dislocation. <Electronically signed by Reid Cummings > 06/30/20 0153
[2020-06-30 12:31] VITALS: BP 150/70
== END 2020-06-30 13:01 | disposition home or self-care (01) ==
LOC: M ED 10:50
DX: S63.502A Unspecified sprain of left wrist, initial encounter (principal); S66.912A Strain of unspecified muscle, fascia and tendon at wrist and hand level, left hand, initial encounter; W01.0XXA Fall on same level from slipping, tripping and stumbling without subsequent striking against object, initial encounter; Y92.018 Other place in single-family (private) house as the place of occurrence of the external cause; E11.9 Type 2 diabetes mellitus without complications; I12.9 Hypertensive chronic kidney disease with stage 1 through stage 4 chronic kidney disease, or unspecified chronic kidney disease; I25.10 Atherosclerotic heart disease of native coronary artery without angina pectoris; N18.30 Chronic kidney disease, stage 3 unspecified; E78.5 Hyperlipidemia, unspecified; M85.9 Disorder of bone density and structure, unspecified; Z88.0 Allergy status to penicillin; Z95.5 Presence of coronary angioplasty implant and graft; Z79.899 Other long term (current) drug therapy

== ENCOUNTER → 2020-07-05 | Outpatient (CLI) | payer MEDICARE ==
[~2020-07-05] MED LIST changes: +OXCA150T21 PO
--- NOTE | 2020-07-06 01:16 | REP ---
INDICATION: PAIN. 06/30/2020 COMPARISON: 06/30/2020 TECHNIQUE: AP, lateral, bilateral oblique views of the left wrist. FINDINGS: Stable generalized age-related zhang-carpal degenerative changes are appreciated. No obvious acute/subacute fracture or dislocation identified. IMPRESSION: Generalized degenerative changes. No acute fracture or dislocation appreciated. <Electronically signed by Moustapha Chang > 07/06/20 0112
== END ==
LOC: M SOG 13:38
PROVIDERS: ATTEND Orthopaedic Surgery Sports Medicine
DX: M25.532 Pain in left wrist (principal)

== ENCOUNTER → 2020-08-09 | Outpatient (CLI) | payer MEDICARE | LOC: M LAB 11:21 | PROVIDERS: ATTEND Physician Assistant Medical | DX: G62.9 Polyneuropathy, unspecified (principal) ==

== ENCOUNTER → 2020-09-15 | Outpatient (CLI) | payer MEDICARE ==
[~2020-09-15] MED LIST changes: +BACL10TA2; +ELID1CRE11 TOP; +HYDR-643; +PIME1CRE
== END ==
LOC: M LABSMTC 09:12
PROVIDERS: ATTEND Anesthesiology
DX: Z01.812 Encounter for preprocedural laboratory examination (principal); Z20.822 Contact with and (suspected) exposure to COVID-19

== ENCOUNTER 2020-09-20 06:40 | Day surgery (SDC) | payer MEDICARE ==
[~2020-09-20] VITALS: Ht 157.5 cm; Wt 67.6 kg
[~2020-09-20 06:40] MED LIST changes: +NS 1,000 ML IV ONE
[2020-09-20] MEDS ORDERED: LIDOCAINE 2% 100MG/5ML SDV (FOR ANES.) As Ordered ONE (07:10)
[2020-09-20] MEDS ORDERED: propofoL 200 MG/20 ML VIAL As Ordered ONE ×2 (07:10→07:52)
--- NOTE | 2020-09-20 08:22 | ROOR ---
Patient Name: Olga Reyez Procedure Date: 09/20/2020 7:25 AM Date of : 1950 Age: 70 Room: [facility] Gender: Female Note Status: Finalized Procedure: Colonoscopy Indications: High risk colon cancer surveillance: Personal history of colonic polyps, Surveillance: Personal history of incomplete removal of large sessile adenoma on last colonoscopy (less than 1 year ago), Surveillance: Personal history of adenomatous polyps, inadequate prep on last colonoscopy (less than 1 year ago), High risk colon cancer surveillance: Personal history of adenoma with high grade dysplasia Providers: Ty Schmitz MD Referring MD: Bhavana STACY MD Requesting Provider: Medicines: Monitored Anesthesia Care Complications: No immediate complications. Procedure: Pre-Anesthesia Assessment: - The heart rate, respiratory rate, oxygen saturations, blood pressure, adequacy of pulmonary ventilation, and response to care were monitored throughout the procedure. The Colonoscope was introduced through the anus and advanced to the terminal ileum, with identification of the appendiceal orifice and IC valve. The colonoscopy was performed without difficulty. The patient tolerated the procedure well. The quality of the bowel preparation was good. Findings: The perianal and digital rectal examinations were normal. Four sessile polyps were found in the hepatic flexure and ascending colon. The polyps were diminutive in size. These polyps were removed with a hot snare. Resection and retrieval were complete. To prevent bleeding after the polypectomy, three hemostatic clips were successfully placed. There was a small lipoma, in the ascending colon. A single small angioectasia without bleeding was found at the ileocecal valve. Mild sigmoid diverticulosis and small internal hemorrhoids. The exam was otherwise without abnormality. Impression: - Four diminutive polyps at the hepatic flexure and in the ascending colon, removed with a hot snare. Resected and retrieved. Clips were placed. - Small lipoma in the ascending colon. - A single non-bleeding colonic angioectasia. - Mild sigmoid diverticulosis and small internal hemorrhoids. - The examination was otherwise normal. Recommendation: - Telephone endoscopist for pathology results in 2 weeks. - Repeat colonoscopy for surveillance based on pathology results. - Resume Plavix (clopidogrel) at prior dose in 2 days. Procedure Code(s): --- Professional --- 11028, Colonoscopy, flexible; with removal of tumor(s), polyp(s), or other lesion(s) by snare technique Diagnosis Code(s): --- Professional --- K63.5, Polyp of colon D17.5, Benign lipomatous neoplasm of intra-abdominal organs K55.20, Angiodysplasia of colon without hemorrhage Z86.010, Personal history of colonic polyps D12.6, Benign neoplasm of colon, unspecified CPT copyright 2019 [employer]. All rights reserved. The codes documented in this report are preliminary and upon branch associate review may be revised to meet current compliance requirements. Ty Schmitz MD Ty Schmitz MD 09/20/2020 8:21:52 AM Electronically signed by Ty Schmitz MD Number of Addenda: 0 Note Initiated On: 09/20/2020 7:25 AM Estimated Blood Loss: Estimated blood loss: none.
[2020-09-20 08:40] VITALS: BP 159/70
== END 2020-09-20 09:46 | disposition home or self-care (01) ==
LOC: M OPP 06:40
PROVIDERS: ATTEND Internal Medicine Gastroenterology
DX: Z12.11 Encounter for screening for malignant neoplasm of colon (principal); Z86.010 Personal history of colon polyps; Z80.0 Family history of malignant neoplasm of digestive organs; K63.5 Polyp of colon; D17.5 Benign lipomatous neoplasm of intra-abdominal organs; K55.20 Angiodysplasia of colon without hemorrhage; K21.9 Gastro-esophageal reflux disease without esophagitis; K57.30 Diverticulosis of large intestine without perforation or abscess without bleeding; K64.8 Other hemorrhoids; Z79.899 Other long term (current) drug therapy; Z88.0 Allergy status to penicillin; Z86.73 Personal history of transient ischemic attack (TIA), and cerebral infarction without residual deficits; Z80.42 Family history of malignant neoplasm of prostate; Z95.5 Presence of coronary angioplasty implant and graft

== ENCOUNTER → 2020-10-01 | Outpatient (REF) | payer MEDICARE ==
[~2020-10-01] MED LIST changes: -NS 1,000 ML IV ONE
[2020-10-01 19:40] LABS: FOLATE 5.9 NG/ML
== END ==
LOC: M LAB REF 18:20
PROVIDERS: ATTEND Internal Medicine Nephrology
DX: D50.9 Iron deficiency anemia, unspecified (principal); N18.32 Chronic kidney disease, stage 3b

== ENCOUNTER → 2020-11-05 | Outpatient (REF) | payer MEDICARE | LOC: M LAB REF 16:14 | PROVIDERS: ATTEND Internal Medicine | DX: Z11.59 Encounter for screening for other viral diseases (principal) ==

== ENCOUNTER → 2020-12-21 | Outpatient (CLI) | payer MEDICARE ==
[~2020-12-21] MED LIST changes: -MAGN400T3 PO; +MAGN400T33 PO
--- NOTE | 2020-12-21 10:36 | REPVR ---
PROCEDURE INFORMATION: Exam: MR Head Without Contrast Exam date and time: 12/21/2020 10:07 AM Age: 70 years old Clinical indication: Condition or disease; Other: Meningioma; Patient HX: F/u TECHNIQUE: Imaging protocol: MR of the head without contrast. COMPARISON: CT Head without contrast 04/20/2018 2:50 PM FINDINGS: Brain: Today's examination demonstrates no evidence of acute hemorrhage or acute territorial infarct. For age there are mild to moderate diffuse involutional changes of brain with mild to moderate T2 and FLAIR hyperintensities raising the question of small vessel disease in this age group. Expected vascular flow voids are present centrally. No significant hemosiderin deposition in the brain. No definite intra-axial or extra-axial mass in this noncontrast study. If the patient's renal function will tolerate, contrast-enhanced imaging may be helpful as would comparison with outside studies. Cerebral ventricles: Normal. No ventriculomegaly. Pituitary gland and sella: A partially empty sella is noted as a normal variant. Bones/joints: Benign marrow signal on the T1 weighted images. Paranasal sinuses: Mild ethmoid disease. Mastoid air cells: The mastoids are well aerated. Orbital cavity: The orbits look intact. Soft tissues: Unremarkable. Other findings: Limited noncontrast exam. IMPRESSION: 1. No acute abnormality. 2. Limited noncontrast exam for the evaluation of a potential meningioma. 3. No definite mass identified. Contrast-enhanced imaging in comparison with prior outside study should be considered. Electronically signed by: Todd Moura On 12/21/2020 10:36:12 AM
== END ==
LOC: M PLARAD 09:24
PROVIDERS: ATTEND Neurological Surgery
DX: D32.9 Benign neoplasm of meninges, unspecified (principal)

== ENCOUNTER → 2021-01-03 | Outpatient (REF) | payer MEDICARE ==
[2021-01-03 14:23] LABS: PERCENT SATURATION 8.5 % (13.2-45.0)
== END ==
LOC: M LAB REF 12:52
PROVIDERS: ATTEND Nurse Practitioner Family
DX: D50.9 Iron deficiency anemia, unspecified (principal); N18.32 Chronic kidney disease, stage 3b

== ENCOUNTER 2021-01-15 08:25 | Outpatient (CLI) | payer MEDICARE ==
[~2021-01-15] VITALS: Ht 157.5 cm; Wt 70.0 kg
[~2021-01-15 08:25] MED LIST changes: +ALBUTEROL SULFATE 2.5 MG/0.5 ML INH NEB SOLN INH PRN; +EPINEPHrine INJ 1 MG/ML 1ML AMP IM PRN; +diphenhydrAMINE 50MG/ML VIAL (J1200) IV PRN; +methylPREDNISolone 125MG 2ML VIAL IV PRN
[2021-01-15] MEDS ORDERED: diphenhydrAMINE 50MG/ML VIAL (J1200) IV ONE (08:30)
[2021-01-15] MEDS ORDERED: FERRIC CARBOXYMALTOSE INJ 750 MG, VIAL MATE ADAPTER 1 EACH in NS 250 ML IV ONE (08:30)
[2021-01-15] MEDS ORDERED: NS 1,000 ML IV SCH (08:30)
[2021-01-15 08:49] VITALS: BP 182/70
[2021-01-15] MEDS ORDERED: POTA10CA32 PO (08:52)
[2021-01-15] MEDS ORDERED: FOLI400T13 PO (08:52)
[2021-01-15] MEDS ORDERED: ACET325C5 PO (08:54)
[2021-01-15 10:16] VITALS: BP 143/67
[2021-01-15 11:30] VITALS: BP 142/88
== END 2021-01-15 11:30 | disposition home or self-care (01) ==
LOC: M INFU 08:25
PROVIDERS: ATTEND Internal Medicine Nephrology
DX: D50.9 Iron deficiency anemia, unspecified (principal); Z88.0 Allergy status to penicillin
CPT/HCPCS: 96365; 96366; 96375; J1200; J1439

== ENCOUNTER 2021-01-22 09:32 | Outpatient (CLI) | payer MEDICARE ==
[~2021-01-22] VITALS: Ht 157.5 cm; Wt 70.0 kg
[~2021-01-22 09:32] MED LIST changes: +ACET325C5 PO; +FERRIC CARBOXYMALTOSE INJ 750 MG, VIAL MATE ADAPTER 1 EACH in NS 250 ML IV ONE; +NS 1,000 ML IV SCH; +POTA10CA32 PO; +diphenhydrAMINE 50MG/ML VIAL (J1200) IV ONE
[2021-01-22 09:49] VITALS: BP 159/70
[2021-01-22 11:06] VITALS: BP 144/65
== END 2021-01-22 11:10 | disposition home or self-care (01) ==
LOC: M INFU 09:32
PROVIDERS: ATTEND Internal Medicine Nephrology
DX: D50.9 Iron deficiency anemia, unspecified (principal); Z88.0 Allergy status to penicillin
CPT/HCPCS: 96365; J1439

== ENCOUNTER → 2021-04-15 | Outpatient (CLI) | payer MEDICARE ==
[~2021-04-15] MED LIST changes: -ALBUTEROL SULFATE 2.5 MG/0.5 ML INH NEB SOLN INH PRN; -EPINEPHrine INJ 1 MG/ML 1ML AMP IM PRN; -FERRIC CARBOXYMALTOSE INJ 750 MG, VIAL MATE ADAPTER 1 EACH in NS 250 ML IV ONE; -NS 1,000 ML IV SCH; -diphenhydrAMINE 50MG/ML VIAL (J1200) IV ONE; -diphenhydrAMINE 50MG/ML VIAL (J1200) IV PRN; -methylPREDNISolone 125MG 2ML VIAL IV PRN
== END ==
LOC: M RAD 10:02
PROVIDERS: ATTEND Nurse Practitioner Family
DX: K80.20 Calculus of gallbladder without cholecystitis without obstruction (principal); R10.11 Right upper quadrant pain

== ENCOUNTER → 2021-05-11 | Outpatient (CLI) | payer MEDICARE ==
[~2021-05-11] MED LIST changes: +CLOP75TA2 PO; +METO1TAB32 PO; +OMEP-173 PO; +ROSU20TA5 PO; +VITA1CHW7 PO
== END ==
LOC: M LABSMTC 10:40
PROVIDERS: ATTEND Anesthesiology
DX: Z20.822 Contact with and (suspected) exposure to COVID-19 (principal)

== ENCOUNTER 2021-05-16 06:04 | Day surgery (SDC) | payer MEDICARE ==
[~2021-05-16] VITALS: Ht 157.5 cm; Wt 71.8 kg
[~2021-05-16 06:04] MED LIST changes: +LR 1,000 ML IV ONE
[2021-05-16] MEDS ORDERED: fentaNYL 100 MCG/2 ML INJECTION As Ordered ONE (07:01)
[2021-05-16] MEDS ORDERED: MIDAZOLAM INJ 2MG/2ML VIAL (J2250 PER 1MG) As Ordered ONE (07:01)
[2021-05-16] MEDS ORDERED: propofoL 200 MG/20 ML VIAL As Ordered ONE (07:02)
[2021-05-16] MEDS ORDERED: ONDANSETRON 4MG/2ML VIAL As Ordered ONE (07:02)
[2021-05-16] MEDS ORDERED: ROCURONIUM BROMIDE 50 MG/5 ML VIAL As Ordered ONE (07:02)
[2021-05-16] MEDS ORDERED: LIDOCAINE 2% 100MG/5ML SDV (FOR ANES.) As Ordered ONE (07:02)
[2021-05-16] MEDS ORDERED: KETOROLAC 60MG 2ML VIAL As Ordered ONE (07:02)
[2021-05-16] MEDS ORDERED: SUGAMMADEX SODIUM 500 MG/5 ML VIAL (BRIDION) As Ordered ONE (07:02)
[2021-05-16] MEDS ORDERED: dexameTHASONE 4 MG/ML 1ML VIAL (J1100 PER 1MG) As Ordered ONE (07:02)
[2021-05-16] MEDS ORDERED: ACETAMINOPHEN 1000MG 100ML IV BTL (OFIRMEV) (J0131 PER 10MG) As Ordered ONE (07:08)
[2021-05-16] MEDS ORDERED: BUPIVACAINE HCL 0.25% 30ML VIAL As Ordered ONE (07:19)
[2021-05-16] MEDS ORDERED: HYDR-4571 PO (09:55)
[2021-05-16] MEDS ORDERED: ONDANSETRON 4MG/2ML VIAL IV PRN (10:05)
[2021-05-16] MEDS ORDERED: METOCLOPRAMIDE INJ 10MG/2ML VIAL (J2765 PER 1) IV PRN (10:05)
[2021-05-16] MEDS ORDERED: LR 1,000 ML IV SCH (10:05)
[2021-05-16] MEDS ORDERED: oxyCODONE 5MG TAB PO PRN (10:05)
[2021-05-16] MEDS: fentaNYL 100 MCG/2 ML INJECTION IV PRN ×4 (10:15→10:40)
[2021-05-16] MEDS ORDERED: NORCO, ANEXSIA 5/325MG TABLET (HYDROcodone/ACETAMINOPHEN) PO PRN (10:45)
[2021-05-16] MEDS ORDERED: ACETAMINOPHEN TAB 650MG DOSE (2X325MG) PO PRN (10:45)
[2021-05-16 12:35] VITALS: BP 135/77
[2021-05-16] MEDS ORDERED: LR 1,000 ML IV ONE (13:05)
== END 2021-05-16 12:41 | disposition home or self-care (01) ==
LOC: M SDC 06:04
PROVIDERS: ATTEND Surgery
DX: K80.10 Calculus of gallbladder with chronic cholecystitis without obstruction (principal); E11.40 Type 2 diabetes mellitus with diabetic neuropathy, unspecified; I25.10 Atherosclerotic heart disease of native coronary artery without angina pectoris; N18.9 Chronic kidney disease, unspecified; E78.00 Pure hypercholesterolemia, unspecified; L43.9 Lichen planus, unspecified; M54.9 Dorsalgia, unspecified; I73.9 Peripheral vascular disease, unspecified; G47.33 Obstructive sleep apnea (adult) (pediatric); M19.90 Unspecified osteoarthritis, unspecified site; Z79.899 Other long term (current) drug therapy; Z79.02 Long term (current) use of antithrombotics/antiplatelets; Z88.0 Allergy status to penicillin; Z87.891 Personal history of nicotine dependence
CPT/HCPCS: 47562; 88304; J0131; J1100; J1885; J2250; J2405; J3010; S2900

== ENCOUNTER → 2021-05-22 | Outpatient (CLI) | payer MEDICARE ==
[~2021-05-22] MED LIST changes: +HYDR-4571 PO; -LR 1,000 ML IV ONE
[2021-05-22 13:44] LABS: BASO # 0.1 10^3/uL (0.0-0.2); BASO % 0.7 % (0.0-1.0); EOS # 0.3 10^3/uL (0.0-0.5); EOS % 3.4 % (0.0-3.0); HEMATOCRIT 38.2 % (36.0-47.0); HEMOGLOBIN 12.6 g/dl (12.0-15.5); LYMPH # 1.7 10^3/uL (1.5-5.0); LYMPH % 17.5 % (24.0-44.0); MEAN CORPUSCULAR HEMOGLOBIN 30.1 pg (27.0-33.0); MEAN CORPUSCULAR VOLUME 91.2 fl (80.0-96.0); MONO # 0.9 10^3/uL (0.0-0.8); NEUTROPHILS # 6.6 10^3/uL (1.5-8.5); NEUTROPHILS % 68.5 % (36.0-66.0); PLATELET COUNT, AUTOMATED 336 10^3/uL (150-450); RED BLOOD COUNT 4.19 10^6/uL (4.00-5.40); WHITE BLOOD COUNT 9.6 10^3/uL (4.0-10.0)
[2021-05-22 13:54] LABS: INR 1.07; PROTHROMBIN TIME 14.3 SECONDS (12.7-14.5)
[2021-05-22 13:55] LABS: PARTIAL THROMBOPLASTIN TIME 30.1 SECONDS (25.9-37.0)
[2021-05-22 14:11] LABS: CALCIUM LEVEL 9.8 MG/DL (8.8-10.2); CREATININE FOR GFR 1.43 MG/DL (0.55-1.30); GLOMERULAR FILTRATION RATE 38.6 (>39); POTASSIUM SERUM 4.4 MEQ/L (3.5-5.1)
== END ==
LOC: M LAB 13:12
PROVIDERS: ATTEND Surgery Vascular Surgery
DX: I80.211 Phlebitis and thrombophlebitis of right iliac vein (principal)

== ENCOUNTER → 2021-05-25 | Outpatient (CLI) | payer MEDICARE | LOC: M LABSMTC 09:39 | PROVIDERS: ATTEND Surgery Vascular Surgery | DX: Z01.812 Encounter for preprocedural laboratory examination (principal); I70.211 Atherosclerosis of native arteries of extremities with intermittent claudication, right leg ==

== ENCOUNTER → 2021-08-12 | Outpatient (REF) | payer MEDICARE ==
[2021-08-12 17:25] LABS: RHEUMATOID FACTOR QUANT < 10.0 IU/ML (<15.0); TOTAL PROTEIN 6.5 GM/DL (6.4-8.2)
[2021-08-12 17:51] LABS: VITAMIN B12 LEVEL 394 PG/ML
[2021-08-12 17:52] LABS: FOLATE > 24.0 NG/ML
[2021-08-14 10:07] LABS: ALBUMIN % 64.2 % (55.8-66.1)
[2021-08-14 10:08] LABS: ALBUMIN 4.17 GM/DL (3.29-5.55); ALPHA-1-GLOBULIN % 5.5 % (2.9-4.9); ALPHA-1-GLOBULINS 0.36 GM/DL (0.17-0.41); ALPHA-2-GLOBULINS 0.79 GM/DL (0.42-0.99); ALPHA-2-GLOBULINS % 12.1 % (7.1-11.8); BETA-1-GLOBULINS 0.38 GM/DL (0.28-0.60); BETA-1-GLOBULINS % 5.8 % (4.7-7.2); BETA-2-GLOBULINS 0.25 GM/DL (0.19-0.55); BETA-2-GLOBULINS % 3.8 % (3.2-6.5); GAMMA GLOBULIN % 8.6 % (11.1-18.8); GAMMA GLOBULINS 0.56 GM/DL (0.65-1.58)
== END ==
LOC: M LAB REF 16:13
PROVIDERS: ATTEND Internal Medicine
DX: G62.9 Polyneuropathy, unspecified (principal)

== ENCOUNTER → 2021-08-18 | Outpatient (CLI) | payer MEDICARE | LOC: M LABSMTC 09:57 | PROVIDERS: ATTEND Surgery Vascular Surgery | DX: Z20.822 Contact with and (suspected) exposure to COVID-19 (principal) ==

== ENCOUNTER → 2021-12-12 | Outpatient (REF) | payer MEDICARE ==
[2021-12-12 20:47] LABS: PERCENT SATURATION 85.5 % (13.2-45.0)
== END ==
LOC: M LAB REF 16:52
PROVIDERS: ATTEND Nurse Practitioner Family
DX: D50.9 Iron deficiency anemia, unspecified (principal)

== ENCOUNTER → 2022-01-01 | Outpatient (CLI) | payer MEDICARE ==
[~2022-01-01] MED LIST changes: +CLOP75TA99 PO; -PLAV1TAB2 PO
== END ==
LOC: M SOG 08:07
PROVIDERS: ATTEND Orthopaedic Surgery
DX: M25.531 Pain in right wrist (principal); M25.532 Pain in left wrist

== ENCOUNTER 2022-01-08 16:06 | Emergency (ER) | payer MEDICARE ==
[2022-01-08] VITALS (10 sets, daily range): BP systolic 125–173; BP diastolic 60–82
[~2022-01-08] VITALS: Ht 157.5 cm; Wt 77.0 kg
[2022-01-08] MEDS ORDERED: ASPIRIN 81 MG CHEW TABLET PO ONE (16:10)
[2022-01-08] MEDS ORDERED: NITROGLYCERIN 0.4 MG SUBL TABLET SL PRN (16:10)
[2022-01-08] MEDS: MORPHINE 2 MG/ML 1ML VIAL IV PRN ×3 (16:18→17:20)
[2022-01-08] MEDS ORDERED: HEPARIN DRIP 25,000 UNITS in IV 1 EA IV SCH (16:25)
[2022-01-08] MEDS ORDERED: HEPARIN SOD (PORCINE) 5000UNITS/ML 1ML VIAL/SYRINGE IV ONE (16:25)
[2022-01-08 16:31] LABS: BASO # 0.1 10^3/uL (0.0-0.2); BASO % 0.6 % (0.0-1.0); EOS # 0.1 10^3/uL (0.0-0.5); EOS % 0.8 % (0.0-3.0); LYMPH # 1.6 10^3/uL (1.5-5.0); LYMPH % 11.7 % (24.0-44.0); MEAN CORPUSCULAR VOLUME 103.8 fl (80.0-96.0); NEUTROPHILS # 10.4 10^3/uL (1.5-8.5); NEUTROPHILS % 74.1 % (36.0-66.0); PLATELET COUNT, AUTOMATED 477 10^3/uL (150-450); RED BLOOD COUNT 1.86 10^6/uL (4.00-5.40)
[2022-01-08 16:43] LABS: HEMATOCRIT 19.3 % (36.0-47.0); HEMOGLOBIN 5.4 g/dl (12.0-15.5); MONO # 1.6 10^3/uL (0.0-0.8)
[2022-01-08 16:44] LABS: MONO % 11.7 % (2.0-8.0)
[2022-01-08 16:47] LABS: INR 1.48; PROTHROMBIN TIME 18.2 SECONDS (12.5-14.5)
[2022-01-08 16:48] LABS: PARTIAL THROMBOPLASTIN TIME 30.8 SECONDS (24.8-34.2)
[2022-01-08] MEDS ORDERED: PANTOPRAZOLE 40MG VIAL IV ONE (16:50)
[2022-01-08] MEDS: PANTOPRAZOLE SODIUM 40 MG in D5W 50 ML IV SCH ×2 (17:04→22:13)
[2022-01-08 17:12] LABS: ALBUMIN 3.2 G/DL (3.2-5.2); ALT/SGPT 14 U/L (7.0-40); BILIRUBIN,DIRECT < 0.1 MG/DL (<0.4); BILIRUBIN,TOTAL < 0.2 MG/DL (0.3-1.2); BLOOD UREA NITROGEN 28 MG/DL (9-23); CARBON DIOXIDE LEVEL 16 MMOL/L (20-31); CHLORIDE LEVEL 105 MMOL/L (98-107); CK-MB VALUE MASS 9.6 NG/ML (<3.6); CPK CREATINE PHOSPHOKINASE 158 U/L (34-145); CREATININE FOR GFR 1.81 MG/DL (0.55-1.30); GLOMERULAR FILTRATION RATE 29.4 (>39); GLUCOSE, FASTING 190 MG/DL (74-106); LIPASE 50 U/L (12-53); MB/CK RELATIVE INDEX 6.07 (< OR =4); POTASSIUM SERUM 5.1 MMOL/L (3.5-5.1); SODIUM LEVEL 137 MMOL/L (136-145); TOTAL PROTEIN 5.8 G/DL (5.7-8.2)
[2022-01-08] MEDS ORDERED: ELIQ2.5T PO (17:25)
[2022-01-08] MEDS ORDERED: CILO50TA2 PO (17:25)
[2022-01-08] MEDS ORDERED: CALC1CAP31 PO (17:25)
[2022-01-08] MEDS ORDERED: ISOVUE-370 76% 100ML VIAL As Ordered ONE (17:53)
[2022-01-08 18:29] LABS: RSV AMPLIFICATION NEGATIVE (NEGATIVE)
[2022-01-08] MEDS ORDERED: HYDR-3713 PO (19:21)
[2022-01-08] MEDS ORDERED: HOME MED LIST COMPLETE! XX SCH (19:25)
[2022-01-08 20:46] LABS: CK-MB VALUE MASS 8.8 NG/ML (<3.6); MB/CK RELATIVE INDEX 5.78 (< OR =4)
[2022-01-08] MEDS ORDERED: ESMOLOL HCL 2,000 MG in IV 1 EA IV SCH (22:30)
[2022-01-08] MEDS ORDERED: FUROSEMIDE 40MG/4ML VIAL (J1940) As Ordered ONE (23:53)
[2022-01-08] MEDS ORDERED: MORPHINE 2 MG/ML 1ML VIAL IV ONE (23:55)
[2022-01-08] MEDS ORDERED: FUROSEMIDE 40MG/4ML VIAL (J1940) IV ONE (23:55)
[2022-01-09] MEDS ORDERED: ONDANSETRON 4MG 2ML VIAL As Ordered ONE (00:04)
[2022-01-09] MEDS ORDERED: ONDANSETRON 4MG 2ML VIAL IV ONE (00:05)
[2022-01-09 00:20] VITALS: BP 140/78
== END 2022-01-09 00:32 | disposition short-term general hospital (02) ==
LOC: M ED 16:06
DX: I21.4 Non-ST elevation (NSTEMI) myocardial infarction (principal); I21.A1 Myocardial infarction type 2; D64.9 Anemia, unspecified; K92.2 Gastrointestinal hemorrhage, unspecified; I71.00 Dissection of unspecified site of aorta; J90 Pleural effusion, not elsewhere classified; R91.8 Other nonspecific abnormal finding of lung field; N83.291 Other ovarian cyst, right side; I48.91 Unspecified atrial fibrillation; I25.10 Atherosclerotic heart disease of native coronary artery without angina pectoris; I13.0 Hypertensive heart and chronic kidney disease with heart failure and stage 1 through stage 4 chronic kidney disease, or unspecified chronic kidney disease; I50.9 Heart failure, unspecified; E78.5 Hyperlipidemia, unspecified; Z87.442 Personal history of urinary calculi; Z86.73 Personal history of transient ischemic attack (TIA), and cerebral infarction without residual deficits; G47.33 Obstructive sleep apnea (adult) (pediatric); Z95.5 Presence of coronary angioplasty implant and graft; Z88.0 Allergy status to penicillin; Z90.710 Acquired absence of both cervix and uterus; Z79.01 Long term (current) use of anticoagulants; Z79.899 Other long term (current) drug therapy
CPT/HCPCS: 36430; 51702; 71045; 71275; 74174; 80047; 80048; 80076; 82550; 82553; 83605; 83690; 83880; 84484; 85025; 85610; 85730; 86850; 86900; 86901; 86920; 87631; 93005; 93041; 94760; 96365; 96366; 96375; 96376; 99285; C9113; J1940; J2270; J2405; P9016; Q9967

== ENCOUNTER → 2022-01-21 | Outpatient (CLI) | payer MEDICARE ==
[~2022-01-21] MED LIST changes: +CALC1CAP31 PO; +CILO50TA2 PO; +ELIQ2.5T PO; +HYDR-3713 PO
[2022-01-21 15:20] LABS: HEMATOCRIT 33.5 % (36.0-47.0); HEMOGLOBIN 10.3 g/dl (12.0-15.5); MEAN CORPUSCULAR HEMOGLOBIN 28.8 pg (27.0-33.0); MEAN CORPUSCULAR HGB CONC 30.7 g/dl (32.0-36.5); MEAN CORPUSCULAR VOLUME 93.6 fl (80.0-96.0); PLATELET COUNT, AUTOMATED 341 10^3/uL (150-450); RED BLOOD COUNT 3.58 10^6/uL (4.00-5.40); WHITE BLOOD COUNT 6.8 10^3/uL (4.0-10.0)
[2022-01-21 16:19] LABS: CALCIUM LEVEL 9.4 MG/DL (8.3-10.6); CREATININE FOR GFR 1.59 MG/DL (0.55-1.30); GLOMERULAR FILTRATION RATE 34.2 (>39); POTASSIUM SERUM 4.5 MMOL/L (3.5-5.1)
== END ==
LOC: M LAB 14:05
PROVIDERS: ATTEND Internal Medicine Cardiovascular Disease
DX: I25.118 Atherosclerotic heart disease of native coronary artery with other forms of angina pectoris (principal)

== ENCOUNTER → 2022-02-12 | Outpatient (CLI) | payer MEDICARE ==
[~2022-02-12] MED LIST changes: -POTA10CA32 PO; +POTA10CA33 PO
== END ==
LOC: M RAD 10:33
PROVIDERS: ATTEND Physician Assistant
DX: Z48.812 Encounter for surgical aftercare following surgery on the circulatory system (principal)

== ENCOUNTER → 2022-02-13 | Outpatient (CLI) | payer MEDICARE | LOC: M RAD 11:37 | PROVIDERS: ATTEND Internal Medicine | DX: R93.5 Abnormal findings on diagnostic imaging of other abdominal regions, including retroperitoneum (principal) ==

== ENCOUNTER → 2022-03-12 | Outpatient (CLI) | payer MEDICARE | LOC: M LABSMTC 10:45 | PROVIDERS: ATTEND Anesthesiology | DX: Z01.818 Encounter for other preprocedural examination (principal); Z11.52 Encounter for screening for COVID-19 ==

== ENCOUNTER 2022-03-17 06:12 | Day surgery (SDC) | payer MEDICARE ==
[~2022-03-17] VITALS: Ht 157.5 cm; Wt 76.7 kg
[2022-03-17] MEDS ORDERED: VANCOMYCIN HCL 1,000 MG, VIAL MATE ADAPTER 1 EACH in D5W 250 ML IV ONE (06:20)
[2022-03-17] MEDS ORDERED: oxyCODONE 5MG TAB PO ONE (06:20)
[2022-03-17] MEDS ORDERED: fentaNYL 250 MCG/5 ML INJECTION As Ordered ONE (07:11)
[2022-03-17] MEDS ORDERED: LIDOCAINE 2% 100MG/5ML SDV (FOR ANES.) As Ordered ONE (07:12)
[2022-03-17] MEDS ORDERED: MIDAZOLAM INJ 2MG/2ML VIAL As Ordered ONE (07:12)
[2022-03-17] MEDS ORDERED: KETOROLAC 60MG 2ML VIAL As Ordered ONE (07:12)
[2022-03-17] MEDS ORDERED: ONDANSETRON 4MG 2ML VIAL As Ordered ONE (07:12)
[2022-03-17] MEDS ORDERED: propofoL 200 MG/20 ML VIAL As Ordered ONE (07:12)
[2022-03-17] MEDS ORDERED: ACETAMINOPHEN 1000MG 100ML IV BAG As Ordered ONE (07:13)
[2022-03-17] MEDS ORDERED: BUPIVACAINE/EPIN 0.5% 30ML VIAL As Ordered ONE (07:14)
[2022-03-17] MEDS ORDERED: ePHEDrine SULFATE 25 MG/5 ML(5MG/ML) SYRINGE As Ordered ONE (08:06)
[2022-03-17] MEDS ORDERED: PHENYLephrine 500MCG 5ML (100MCG/ML) SYRINGE As Ordered ONE (08:06)
[2022-03-17] MEDS ORDERED: ONDANSETRON 4MG 2ML VIAL IV PRN (08:35)
[2022-03-17] MEDS ORDERED: LIDOCAINE 1% SDV 5ML VIAL SC PRN (08:35)
[2022-03-17] MEDS ORDERED: fentaNYL 100 MCG/2 ML INJECTION IV PRN (08:35)
[2022-03-17] MEDS ORDERED: LR 1,000 ML IV SCH ×2 (08:35)
[2022-03-17] MEDS ORDERED: oxyCODONE 5MG TAB PO PRN (08:35)
[2022-03-17] MEDS ORDERED: OXYC1TAB23 PO (09:35)
[2022-03-17 10:50] VITALS: BP 136/70
== END 2022-03-17 11:00 | disposition home or self-care (01) ==
LOC: M SDC 06:12
PROVIDERS: ATTEND Orthopaedic Surgery
DX: G56.03 Carpal tunnel syndrome, bilateral upper limbs (principal); Z53.39 Other specified procedure converted to open procedure; I11.9 Hypertensive heart disease without heart failure; E11.9 Type 2 diabetes mellitus without complications; Z79.899 Other long term (current) drug therapy
CPT/HCPCS: 64721; J1100; J2370; J2405

== ENCOUNTER → 2022-04-23 | Outpatient (REF) | payer MEDICARE ==
[~2022-04-23] MED LIST changes: +OXYC1TAB23 PO
== END ==
LOC: M LAB REF 16:27
PROVIDERS: ATTEND Internal Medicine
DX: D50.9 Iron deficiency anemia, unspecified (principal)

== ENCOUNTER 2022-06-27 12:47 | Outpatient (CLI) | payer MEDICARE ==
[2022-06-27 12:55] VITALS: BP 122/53
[2022-06-27 13:45] VITALS: BP 130/64
[2022-06-27 14:56] VITALS: BP 119/53
[2022-06-27 15:14] VITALS: BP 115/57
[2022-06-27 16:30] VITALS: BP 132/59
== END 2022-06-27 16:45 | disposition home or self-care (01) ==
LOC: M INFU 12:47
PROVIDERS: ATTEND Internal Medicine Nephrology
DX: D50.9 Iron deficiency anemia, unspecified (principal); Z88.0 Allergy status to penicillin
CPT/HCPCS: 36430; 86850; 86900; 86901; 86920; P9016

== ENCOUNTER → 2022-08-04 | Outpatient (REF) | payer MEDICARE ==
[~2022-08-04] MED LIST changes: -POTA10CA33 PO; +POTA10CA60 PO; -ROSU20TA5 PO; +ROSU20TA61 PO
== END ==
LOC: M LAB REF 16:24
PROVIDERS: ATTEND Internal Medicine
DX: M79.674 Pain in right toe(s) (principal)

== ENCOUNTER → 2022-08-29 | Outpatient (CLI) | payer MEDICARE | LOC: M RAD 09:12 | PROVIDERS: ATTEND Internal Medicine | DX: D41.10 Neoplasm of uncertain behavior of unspecified renal pelvis (principal) ==

== ENCOUNTER → 2022-09-09 | Outpatient (CLI) | payer MEDICARE | LOC: M RAD 14:31 | PROVIDERS: ATTEND Physician Assistant | DX: S99.921A Unspecified injury of right foot, initial encounter (principal); W18.30XA Fall on same level, unspecified, initial encounter; Y92.009 Unspecified place in unspecified non-institutional (private) residence as the place of occurrence of the external cause ==

== ENCOUNTER → 2022-09-10 | Emergency (ER) | payer MEDICARE ==
[~2022-09-10] VITALS: Ht 157.5 cm; Wt 77.4 kg
[2022-09-10 08:25] VITALS: BP 133/63; TEMP 98.3; O2SAT 97
== END | disposition left against medical advice (07) ==
LOC: M ED 08:24
DX: Z53.21 Procedure and treatment not carried out due to patient leaving prior to being seen by health care provider (principal)

== ENCOUNTER → 2022-09-10 | Outpatient (REF) | payer MEDICARE | LOC: M LAB REF 16:27 | PROVIDERS: ATTEND Podiatrist Foot & Ankle Surgery | DX: M86.171 Other acute osteomyelitis, right ankle and foot (principal); L03.115 Cellulitis of right lower limb ==

== ENCOUNTER → 2022-09-17 | Outpatient (REF) | payer MEDICARE ==
[~2022-09-17] MED LIST changes: -AMIT25TA17 PO; +AMIT25TA19 PO; +AMIT75TA PO; +CRES20TA2 PO; +OMEP40CA4 PO
[2022-09-17 18:33] LABS: PERCENT SATURATION 16.4 % (13.2-45.0)
[2022-09-17 18:34] LABS: FERRITIN 16.5 NG/ML (7.3-270.7)
== END ==
LOC: M LAB REF 17:15
PROVIDERS: ATTEND Nurse Practitioner Family
DX: D50.9 Iron deficiency anemia, unspecified (principal)

== ENCOUNTER → 2022-11-03 | Outpatient (CLI) | payer MEDICARE ==
[~2022-11-03] MED LIST changes: +MIRA1POW3 PO; +PANT40TA29 PO
[2022-11-03 17:55] LABS: BASO # 0.1 10^3/uL (0.0-0.2); BASO % 0.8 % (0.0-1.0); CREATININE FOR GFR 1.7 MG/DL (0.55-1.30); EOS # 0.1 10^3/uL (0.0-0.5); GLOMERULAR FILTRATION RATE 31.5 (>39); HEMATOCRIT 34.9 % (36.0-47.0); HEMOGLOBIN 10.9 g/dl (12.0-15.5); LYMPH # 1.1 10^3/uL (1.5-5.0); LYMPH % 17.7 % (24.0-44.0); MEAN CORPUSCULAR HEMOGLOBIN 28.5 pg (27.0-33.0); MEAN CORPUSCULAR HGB CONC 31.2 g/dl (32.0-36.5); MEAN CORPUSCULAR VOLUME 91.1 fl (80.0-96.0); MONO # 0.5 10^3/uL (0.0-0.8); MONO % 7.8 % (2.0-8.0); NEUTROPHILS # 4.2 10^3/uL (1.5-8.5); NEUTROPHILS % 70.7 % (36.0-66.0); PLATELET COUNT, AUTOMATED 221 10^3/uL (150-450); RED BLOOD COUNT 3.83 10^6/uL (4.00-5.40); WHITE BLOOD COUNT 5.9 10^3/uL (4.0-10.0)
== END ==
LOC: M LAB 16:29
PROVIDERS: ATTEND Internal Medicine Gastroenterology
DX: D50.0 Iron deficiency anemia secondary to blood loss (chronic) (principal)

== ENCOUNTER 2023-05-14 17:03 | Observation (INO) | payer MEDICARE ==
[~2023-05-14] VITALS: Ht 157.5 cm; Wt 72.0 kg
[~2023-05-14 17:03] MED LIST changes: -MIRA1POW3 PO; +MIRA33506 PO
[2023-05-14 18:22] LABS: BASO # 0.1 10^3/uL (0.0-0.2); BASO % 0.6 % (0.0-1.0); EOS # 0.2 10^3/uL (0.0-0.5); EOS % 2.4 % (0.0-3.0); LYMPH # 1.8 10^3/uL (1.5-5.0); LYMPH % 18.2 % (24.0-44.0); MEAN CORPUSCULAR HEMOGLOBIN 29.8 pg (27.0-33.0); MEAN CORPUSCULAR HGB CONC 30.4 g/dl (32.0-36.5); MEAN CORPUSCULAR VOLUME 97.9 fl (80.0-96.0); MONO # 0.9 10^3/uL (0.0-0.8); MONO % 9.6 % (2.0-8.0); NEUTROPHILS # 6.6 10^3/uL (1.5-8.5); NEUTROPHILS % 67.8 % (36.0-66.0); PLATELET COUNT, AUTOMATED 352 10^3/uL (150-450); RED BLOOD COUNT 2.35 10^6/uL (4.00-5.40); WHITE BLOOD COUNT 9.7 10^3/uL (4.0-10.0)
[2023-05-14 18:43] LABS: INR 1.13; PARTIAL THROMBOPLASTIN TIME 29.2 SECONDS (24.8-34.2); PROTHROMBIN TIME 14.2 SECONDS (12.5-14.5)
[2023-05-14] MEDS: PANTOPRAZOLE 40MG VIAL IV ONE (18:44)
[2023-05-14 18:48] LABS: LIPASE 80 U/L (12-53)
[2023-05-14 18:50] LABS: ALBUMIN 3.3 G/DL (3.2-5.2); ALKALINE PHOSPHATASE 80 U/L (46-116); ALT/SGPT 16 U/L (7.0-40); AST/SGOT 16 U/L (<34); BILIRUBIN,DIRECT < 0.1 MG/DL (<0.4); BILIRUBIN,TOTAL < 0.2 MG/DL (0.3-1.2); BLOOD UREA NITROGEN 18 MG/DL (9-23); CALCIUM LEVEL 9.3 MG/DL (8.3-10.6); CARBON DIOXIDE LEVEL 26 MMOL/L (20-31); CHLORIDE LEVEL 108 MMOL/L (98-107); CREATININE FOR GFR 1.49 MG/DL (0.55-1.30); GLOMERULAR FILTRATION RATE 36.6 (>39); GLUCOSE, FASTING 88 MG/DL (74-106); POTASSIUM SERUM 4.1 MMOL/L (3.5-5.1); SODIUM LEVEL 138 MMOL/L (136-145); TOTAL PROTEIN 5.9 G/DL (5.7-8.2)
[2023-05-14 20:41] VITALS: BP 152/65; TEMP 99.3; O2SAT 98
[2023-05-14] MEDS: ACETAMINOPHEN TAB 650MG DOSE (2X325MG) PO ONE (20:55)
[2023-05-14 21:00] VITALS: BP 167/65; TEMP 98.9; O2SAT 98
[2023-05-14] MEDS ORDERED: ASPI-226 PO (21:38)
[2023-05-14] MEDS ORDERED: METO1TAB33 PO (21:38)
[2023-05-14] MEDS ORDERED: OMEP40CA5 PO (21:38)
[2023-05-14] MEDS ORDERED: FERR240T PO (21:38)
[2023-05-14] MEDS ORDERED: PANT-23 PO (21:38)
[2023-05-14] MEDS ORDERED: ACETAMINOPHEN TAB 650MG DOSE (2X325MG) PO PRN (21:40)
[2023-05-14] MEDS ORDERED: DEXTROSE 50% 50ML SYRINGE IV PRN (21:40)
[2023-05-14] MEDS ORDERED: GLUCAGON INJ 1MG VIAL SC PRN (21:40)
[2023-05-14] MEDS ORDERED: HOME MED LIST COMPLETE! XX SCH ×2 (21:40→22:25)
[2023-05-14] MEDS ORDERED: GLUCOSE 4GM CHEW TABLET PO PRN (21:40)
[2023-05-14 22:00] VITALS: BP 130/54; TEMP 98.5; O2SAT 98
[2023-05-14 22:58] VITALS: BP 137/59; TEMP 97.6; O2SAT 99
[2023-05-14 23:17] VITALS: BP 167/68; TEMP 97.3; O2SAT 99
[2023-05-15] MEDS: INSULIN LISPRO (NovoLOG) PER UNIT SC SCH
[2023-05-15 00:46] LABS: HEMATOCRIT 25.3 % (36.0-47.0)
[2023-05-15 01:17] LABS: CK-MB VALUE MASS 1.1 NG/ML (<3.6); MAGNESIUM LEVEL 2.1 MG/DL (1.8-2.4)
[2023-05-15 01:18] LABS: MB/CK RELATIVE INDEX 2.68 (< OR =4)
[2023-05-15] MEDS: ACETAMINOPHEN *IV* 1,000 MG in IV 1 EA IV ONE (04:05)
[2023-05-15 05:10] VITALS: BP 167/68; TEMP 97.3; O2SAT 98
[2023-05-15 06:19] LABS: HEMATOCRIT 24.4 % (36.0-47.0); HEMOGLOBIN 7.7 g/dl (12.0-15.5); MEAN CORPUSCULAR HEMOGLOBIN 29.5 pg (27.0-33.0); MEAN CORPUSCULAR HGB CONC 31.6 g/dl (32.0-36.5); MEAN CORPUSCULAR VOLUME 93.5 fl (80.0-96.0); PLATELET COUNT, AUTOMATED 253 10^3/uL (150-450); RED BLOOD COUNT 2.61 10^6/uL (4.00-5.40); WHITE BLOOD COUNT 7.7 10^3/uL (4.0-10.0)
[2023-05-15 06:27] LABS: ALBUMIN 2.9 G/DL (3.2-5.2); BILIRUBIN,TOTAL 0.3 MG/DL (0.3-1.2); CALCIUM LEVEL 8.7 MG/DL (8.3-10.6); CREATININE FOR GFR 1.48 MG/DL (0.55-1.30); GLOMERULAR FILTRATION RATE 36.9 (>39); POTASSIUM SERUM 4.5 MMOL/L (3.5-5.1)
[2023-05-15 08:03] VITALS: BP 146/62; TEMP 97.7; O2SAT 98
[2023-05-15] MEDS: PANTOPRAZOLE 40MG VIAL IV SCH (08:42)
[2023-05-15 10:10] LABS: HEMATOCRIT 26.6 % (36.0-47.0); HEMOGLOBIN 8.2 g/dl (12.0-15.5)
== END 2023-05-15 13:45 | disposition home or self-care (01) ==
LOC: M ED 17:03 → M ED INP 21:40 → ENRESERV 22:22 → M MSPAV 23:17
PROVIDERS: ADMIT Internal Medicine; ATTEND Student in an Organized Health Care Education/Training Program
DX: D50.9 Iron deficiency anemia, unspecified (principal); K55.20 Angiodysplasia of colon without hemorrhage; K31.819 Angiodysplasia of stomach and duodenum without bleeding; I45.10 Unspecified right bundle-branch block; I44.0 Atrioventricular block, first degree; I73.9 Peripheral vascular disease, unspecified; Z98.62 Peripheral vascular angioplasty status; E11.22 Type 2 diabetes mellitus with diabetic chronic kidney disease; N18.30 Chronic kidney disease, stage 3 unspecified; I12.9 Hypertensive chronic kidney disease with stage 1 through stage 4 chronic kidney disease, or unspecified chronic kidney disease; E78.5 Hyperlipidemia, unspecified; E11.21 Type 2 diabetes mellitus with diabetic nephropathy; I25.10 Atherosclerotic heart disease of native coronary artery without angina pectoris; Z95.5 Presence of coronary angioplasty implant and graft; R79.89 Other specified abnormal findings of blood chemistry; E55.9 Vitamin D deficiency, unspecified; Z80.42 Family history of malignant neoplasm of prostate; Z82.49 Family history of ischemic heart disease and other diseases of the circulatory system; Z80.1 Family history of malignant neoplasm of trachea, bronchus and lung; Z87.891 Personal history of nicotine dependence; Z79.899 Other long term (current) drug therapy; Z79.82 Long term (current) use of aspirin; Z88.0 Allergy status to penicillin; Z91.040 Latex allergy status
CPT/HCPCS: 36415; 36430; 80053; 82248; 82550; 82553; 83690; 83735; 84484; 85014; 85018; 85025; 85027; 85384; 85610; 85730; 86850; 86900; 86901; 86920; 93005; 96374; 96375; 97161; 97165; 97530; 99285; C9113; G0378; J0131; P9016

== ENCOUNTER → 2023-05-19 | Outpatient (REF) | payer MEDICARE ==
[~2023-05-19] MED LIST changes: +ASPI-226 PO; +FERR240T PO; +METO1TAB33 PO; +OMEP40CA5 PO; +PANT-23 PO
== END ==
LOC: M LAB REF 17:51
PROVIDERS: ATTEND Internal Medicine
DX: I13.0 Hypertensive heart and chronic kidney disease with heart failure and stage 1 through stage 4 chronic kidney disease, or unspecified chronic kidney disease (principal); N18.4 Chronic kidney disease, stage 4 (severe); I50.9 Heart failure, unspecified

== ENCOUNTER → 2023-07-02 | Outpatient (REF) | payer MEDICARE ==
[~2023-07-02] MED LIST changes: +AMLO2.5T3 PO; -POTA10CA60 PO; +POTA10CA70 PO; +ROSU5TAB40 PO; -ROSU5TAB5 PO
[2023-07-02 11:37] LABS: PERCENT SATURATION 4.5 % (13.2-45.0)
[2023-07-02 11:38] LABS: FERRITIN 11.2 NG/ML (7.3-270.7)
== END ==
LOC: M LAB REF 10:39
PROVIDERS: ATTEND Nurse Practitioner Family
DX: D50.9 Iron deficiency anemia, unspecified (principal)

== ENCOUNTER 2023-07-03 07:45 | Outpatient (CLI) | payer MEDICARE ==
[2023-07-03] VITALS (7 sets, daily range): BP systolic 128–159; BP diastolic 60–73; TEMP 97–98; O2SAT 95–99
== END 2023-07-03 13:30 | disposition home or self-care (01) ==
LOC: M INFU 07:45
PROVIDERS: ATTEND Nurse Practitioner Family
DX: D50.9 Iron deficiency anemia, unspecified (principal); Z88.0 Allergy status to penicillin; Z91.040 Latex allergy status
CPT/HCPCS: 36430; P9016

== ENCOUNTER 2023-07-09 09:49 | Day surgery (SDC) | payer MEDICARE ==
[~2023-07-09] VITALS: Ht 157.5 cm; Wt 72.4 kg
[2023-07-09] MEDS: NS 1,000 ML IV ONE (10:21)
[2023-07-09] MEDS ORDERED: ONDANSETRON 4MG 2ML VIAL IV ONE (10:30)
[2023-07-09] MEDS ORDERED: fentaNYL 100 MCG/2 ML INJECTION As Ordered ONE (10:49)
[2023-07-09] MEDS ORDERED: propofoL 200 MG/20 ML VIAL As Ordered ONE (10:50)
[2023-07-09] MEDS ORDERED: LIDOCAINE 2% 100MG/5ML SDV (FOR ANES.) As Ordered ONE (10:50)
[2023-07-09] MEDS ORDERED: ONDANSETRON 4MG 2ML VIAL As Ordered ONE (11:12)
[2023-07-09 11:38] VITALS: TEMP 97.7
[2023-07-09 12:00] VITALS: BP 154/69; O2SAT 95
== END 2023-07-09 12:15 | disposition home or self-care (01) ==
LOC: M OPP 09:49
PROVIDERS: ATTEND Internal Medicine Gastroenterology
DX: Z86.010 Personal history of colon polyps (principal); D12.0 Benign neoplasm of cecum; K57.30 Diverticulosis of large intestine without perforation or abscess without bleeding; K64.8 Other hemorrhoids; D50.9 Iron deficiency anemia, unspecified; K22.89 Other specified disease of esophagus; K31.A0 Gastric intestinal metaplasia, unspecified; Z87.19 Personal history of other diseases of the digestive system; E11.9 Type 2 diabetes mellitus without complications; G47.30 Sleep apnea, unspecified; Z99.89 Dependence on other enabling machines and devices; Z95.5 Presence of coronary angioplasty implant and graft; Z86.73 Personal history of transient ischemic attack (TIA), and cerebral infarction without residual deficits; Z86.74 Personal history of sudden cardiac arrest
CPT/HCPCS: 43239; 45385; 88305; J2405; J3010

== ENCOUNTER → 2023-07-16 | Outpatient (REF) | payer MEDICARE ==
[2023-07-16 18:20] LABS: BASO # 0.1 10^3/uL (0.0-0.2); BASO % 0.9 % (0.0-1.0); EOS # 0.3 10^3/uL (0.0-0.5); EOS % 3.7 % (0.0-3.0); HEMATOCRIT 32.2 % (36.0-47.0); HEMOGLOBIN 9.6 g/dl (12.0-15.5); LYMPH # 1.6 10^3/uL (1.5-5.0); MEAN CORPUSCULAR HGB CONC 29.8 g/dl (32.0-36.5); MEAN CORPUSCULAR VOLUME 90.7 fl (80.0-96.0); MONO % 11.7 % (2.0-8.0); NEUTROPHILS # 5.6 10^3/uL (1.5-8.5); NEUTROPHILS % 64.8 % (36.0-66.0); PLATELET COUNT, AUTOMATED 334 10^3/uL (150-450); RED BLOOD COUNT 3.55 10^6/uL (4.00-5.40); WHITE BLOOD COUNT 8.6 10^3/uL (4.0-10.0)
[2023-07-16 18:56] LABS: FERRITIN 37.2 NG/ML (7.3-270.7)
== END ==
LOC: M LAB REF 17:25
PROVIDERS: ATTEND Nurse Practitioner Family
DX: D50.9 Iron deficiency anemia, unspecified (principal)

== ENCOUNTER → 2023-07-31 | Outpatient (CLI) | payer MEDICARE | LOC: M RAD 14:19 | PROVIDERS: ATTEND Internal Medicine | DX: M77.31 Calcaneal spur, right foot (principal) ==

== ENCOUNTER 2023-08-24 07:59 | Outpatient (CLI) | payer MEDICARE ==
[~2023-08-24 07:59] MED LIST changes: +ALBUTEROL SULFATE 2.5MG/0.5ML INH NEB SOLN INH PRN; +EPINEPHrine INJ 1 MG/ML 1ML AMP IM PRN; +NS 1,000 ML IV SCH; +diphenhydrAMINE 50MG/ML VIAL IV PRN; +methylPREDNISolone 125MG 2ML VIAL IV PRN
[2023-08-24] MEDS ORDERED: IRON SUCROSE 500 MG in NS 250 ML OVER 4 HRS IV ONE (08:00)
[2023-08-24 08:15] VITALS: BP 163/77; O2SAT 97
[2023-08-24] MEDS: diphenhydrAMINE 50MG PO PRIOR TO INFUSION PO ONE (08:25)
[2023-08-24] MEDS: ACETAMINOPHEN 650MG PO PRIOR TO INFUSION PO ONE (08:25)
[2023-08-24] MEDS: IRON SUCROSE 25 MG in NS 23.75 ML IV ONE (08:59)
[2023-08-24] MEDS: IRON SUCROSE 475 MG in NS 250 ML IV ONE (09:09)
[2023-08-24 10:00] VITALS: BP 163/70; O2SAT 100
[2023-08-24 11:00] VITALS: BP 158/66; O2SAT 100
[2023-08-24 12:00] VITALS: BP 161/81; O2SAT 98
[2023-08-24 13:00] VITALS: BP 164/67; O2SAT 96
== END 2023-08-24 13:13 ==
LOC: M INFU 07:59
PROVIDERS: ATTEND Internal Medicine
DX: D50.9 Iron deficiency anemia, unspecified (principal); Z88.0 Allergy status to penicillin; Z91.040 Latex allergy status
CPT/HCPCS: 96365; 96366; J1756

== ENCOUNTER → 2023-10-28 | Outpatient (REF) | payer MEDICARE ==
[~2023-10-28] MED LIST changes: -ALBUTEROL SULFATE 2.5MG/0.5ML INH NEB SOLN INH PRN; -EPINEPHrine INJ 1 MG/ML 1ML AMP IM PRN; -NS 1,000 ML IV SCH; -diphenhydrAMINE 50MG/ML VIAL IV PRN; -methylPREDNISolone 125MG 2ML VIAL IV PRN
[2023-10-28 18:36] LABS: FERRITIN 37.2 NG/ML (7.3-270.7)
== END ==
LOC: M LAB REF 17:33
PROVIDERS: ATTEND Nurse Practitioner Family
DX: D50.9 Iron deficiency anemia, unspecified (principal)

== ENCOUNTER → 2023-11-17 | Outpatient (REF) | payer MEDICARE | LOC: M LAB REF 17:39 | PROVIDERS: ATTEND Internal Medicine | DX: D50.9 Iron deficiency anemia, unspecified (principal) ==

== ENCOUNTER 2023-12-07 08:59 | Outpatient (CLI) | payer MEDICARE ==
[~2023-12-07] VITALS: Ht 157.5 cm; Wt 70.0 kg
[~2023-12-07 08:59] MED LIST changes: +ALBUTEROL SULFATE 2.5MG/0.5ML INH NEB SOLN INH PRN; +EPINEPHrine INJ 1 MG/ML 1ML AMP IM PRN; -ROSU20TA61 PO; +ROSU20TA86 PO; +diphenhydrAMINE 50MG/ML VIAL IV PRN; +methylPREDNISolone 125MG 2ML VIAL IV PRN
[2023-12-07] MEDS: diphenhydrAMINE 25MG CAP PO ONE (09:37)
[2023-12-07] MEDS: ACETAMINOPHEN 650 MG PO ONE (09:37)
[2023-12-07 09:45] VITALS: BP 161/67; O2SAT 94
[2023-12-07] MEDS: FERRIC CARBOXYMALTOSE 750 MG (VIAL MATE) IN 100ML NS IV ONE (09:47)
[2023-12-07 10:47] VITALS: BP 161/75; O2SAT 99
== END 2023-12-07 10:50 ==
LOC: M INFU 08:59
PROVIDERS: ATTEND Internal Medicine
DX: D50.9 Iron deficiency anemia, unspecified (principal); Z88.0 Allergy status to penicillin; Z91.040 Latex allergy status
CPT/HCPCS: 96365; J1439

== ENCOUNTER → 2023-12-10 | Outpatient (CLI) | payer MEDICARE ==
[~2023-12-10] MED LIST changes: -ALBUTEROL SULFATE 2.5MG/0.5ML INH NEB SOLN INH PRN; -EPINEPHrine INJ 1 MG/ML 1ML AMP IM PRN; -diphenhydrAMINE 50MG/ML VIAL IV PRN; -methylPREDNISolone 125MG 2ML VIAL IV PRN
== END ==
LOC: M PLARAD 10:53
PROVIDERS: ATTEND Internal Medicine
DX: K86.2 Cyst of pancreas (principal); N28.1 Cyst of kidney, acquired

== ENCOUNTER 2023-12-22 10:30 | Outpatient (CLI) | payer MEDICARE ==
[2023-12-22 10:30] VITALS: BP 118/56; O2SAT 100
[~2023-12-22 10:30] MED LIST changes: +ALBUTEROL SULFATE 2.5MG/0.5ML INH NEB SOLN INH PRN; +EPINEPHrine INJ 1 MG/ML 1ML AMP IM PRN; +NS 1,000 ML IV SCH; -ROSU5TAB40 PO; +ROSU5TAB49 PO; +diphenhydrAMINE 50MG/ML VIAL IV PRN; +methylPREDNISolone 125MG 2ML VIAL IV ONE; +methylPREDNISolone 125MG 2ML VIAL IV PRN
[2023-12-22] MEDS: diphenhydrAMINE 25MG CAP PO ONE (10:34)
[2023-12-22] MEDS: ACETAMINOPHEN 650 MG PO ONE (10:34)
[2023-12-22] MEDS: FERRIC CARBOXYMALTOSE 750 MG (VIAL MATE) IN 100ML NS IV ONE (10:40)
[2023-12-22 11:00] VITALS: BP 137/65; O2SAT 100
== END 2023-12-22 11:00 ==
LOC: M INFU 10:30
PROVIDERS: ATTEND Internal Medicine
DX: D50.9 Iron deficiency anemia, unspecified (principal); Z88.0 Allergy status to penicillin; Z91.040 Latex allergy status
CPT/HCPCS: 96365; J1439

== ENCOUNTER → 2023-12-30 | Outpatient (REF) | payer MEDICARE ==
[~2023-12-30] MED LIST changes: -ALBUTEROL SULFATE 2.5MG/0.5ML INH NEB SOLN INH PRN; -EPINEPHrine INJ 1 MG/ML 1ML AMP IM PRN; -NS 1,000 ML IV SCH; -diphenhydrAMINE 50MG/ML VIAL IV PRN; -methylPREDNISolone 125MG 2ML VIAL IV ONE; -methylPREDNISolone 125MG 2ML VIAL IV PRN
[2023-12-30 19:21] LABS: PERCENT SATURATION 25.4 % (13.2-45.0)
[2023-12-30 19:25] LABS: FERRITIN 496.6 NG/ML (7.3-270.7)
== END ==
LOC: M LAB REF 17:30
PROVIDERS: ATTEND Nurse Practitioner Family
DX: D50.9 Iron deficiency anemia, unspecified (principal)

== ENCOUNTER 2024-02-01 13:14 | Emergency (ER) | payer MEDICARE ==
[~2024-02-01] VITALS: Ht 157.5 cm; Wt 74.8 kg
[2024-02-01 15:04] LABS: BASO # 0.1 10^3/uL (0.0-0.2); BASO % 0.4 % (0.0-1.0); EOS # 0.1 10^3/uL (0.0-0.5); EOS % 0.7 % (0.0-3.0); HEMATOCRIT 28.2 % (36.0-47.0); HEMOGLOBIN 8.7 g/dl (12.0-15.5); LYMPH # 0.7 10^3/uL (1.5-5.0); LYMPH % 6.1 % (24.0-44.0); MEAN CORPUSCULAR HEMOGLOBIN 28.3 pg (27.0-33.0); MEAN CORPUSCULAR HGB CONC 30.9 g/dl (32.0-36.5); MEAN CORPUSCULAR VOLUME 91.9 fl (80.0-96.0); MONO # 0.8 10^3/uL (0.0-0.8); MONO % 6.9 % (2.0-8.0); NEUTROPHILS # 10.4 10^3/uL (1.5-8.5); NEUTROPHILS % 85.2 % (36.0-66.0); PLATELET COUNT, AUTOMATED 425 10^3/uL (150-450); RED BLOOD COUNT 3.07 10^6/uL (4.00-5.40); WHITE BLOOD COUNT 12.2 10^3/uL (4.0-10.0)
[2024-02-01 15:21] LABS: ERYTHROCYTE SEDIMENTATION RATE 71 mm/hr (0-30)
[2024-02-01 15:34] LABS: ALBUMIN 2.8 G/DL (3.2-5.2); ALKALINE PHOSPHATASE 120 U/L (35-104); ALT/SGPT 14 U/L (7.0-40); AST/SGOT 13 U/L (<34); BILIRUBIN,DIRECT < 0.1 MG/DL (<0.4); BILIRUBIN,TOTAL < 0.2 MG/DL (0.3-1.2); BLOOD UREA NITROGEN 15 MG/DL (9-23); CALCIUM LEVEL 8.7 MG/DL (8.3-10.6); CARBON DIOXIDE LEVEL 22 MMOL/L (20-31); CHLORIDE LEVEL 108 MMOL/L (98-107); CREATININE FOR GFR 1.78 MG/DL (0.55-1.30); GLOMERULAR FILTRATION RATE 29.8 (>39); GLUCOSE, FASTING 166 MG/DL (74-106); POTASSIUM SERUM 4.1 MMOL/L (3.5-5.1); SODIUM LEVEL 140 MMOL/L (136-145); TOTAL PROTEIN 5.9 G/DL (5.7-8.2)
[2024-02-01] MEDS: DALBAVANCIN 1,500 MG in D5W 250 ML IV ONE (16:30)
[2024-02-01 17:01] VITALS: BP 164/71; TEMP 98.3; O2SAT 99
== END 2024-02-01 17:03 | disposition home or self-care (01) ==
LOC: M ED 13:14
DX: M87.077 Idiopathic aseptic necrosis of right toe(s) (principal); E11.9 Type 2 diabetes mellitus without complications; I10 Essential (primary) hypertension; Z87.891 Personal history of nicotine dependence; Z88.0 Allergy status to penicillin; Z91.040 Latex allergy status; Z79.1 Long term (current) use of non-steroidal anti-inflammatories (NSAID); Z79.899 Other long term (current) drug therapy
CPT/HCPCS: 73660; 80048; 80076; 83605; 84145; 85025; 85652; 87040; 87070; 87077; 87186; 87205; 96374; 99284; J0875

== ENCOUNTER → 2024-02-02 | Outpatient (REF) | payer MEDICARE | LOC: M LAB REF 12:40 | PROVIDERS: ATTEND Podiatrist Foot & Ankle Surgery | DX: L03.031 Cellulitis of right toe (principal) ==

== ENCOUNTER → 2024-02-24 | Outpatient (REF) | payer MEDICARE ==
[2024-02-25 14:34] LABS: FERRITIN 26.6 NG/ML (7.3-270.7)
[2024-02-25 15:56] LABS: PTH INTACT 133.3 PG/ML (18.5-88.0)
== END ==
LOC: M LAB REF 13:11
PROVIDERS: ATTEND Internal Medicine
DX: D50.9 Iron deficiency anemia, unspecified (principal); N18.4 Chronic kidney disease, stage 4 (severe)

== ENCOUNTER → 2024-04-06 | Outpatient (CLI) | payer MEDICARE | LOC: M RAD 15:22 | PROVIDERS: ATTEND Nurse Practitioner Family | DX: D41.01 Neoplasm of uncertain behavior of right kidney (principal) ==

== ENCOUNTER → 2024-05-02 | Outpatient (REF) | payer MEDICARE | LOC: M LAB REF 12:30 | PROVIDERS: ATTEND Podiatrist Foot & Ankle Surgery | DX: M86.8X8 Other osteomyelitis, other site (principal); I96 Gangrene, not elsewhere classified; Z89.421 Acquired absence of other right toe(s) ==

== ENCOUNTER 2024-05-09 11:40 | Observation (INO) | payer MEDICARE ==
[~2024-05-09] VITALS: Ht 157.5 cm; Wt 63.6 kg
[~2024-05-09 11:40] MED LIST changes: +CLOPIDOGREL 75 MG TAB PO SCH; +DAPAGLIFLOZIN PROPANEDIOL 10MG TABLET (FARXIGA) PO SCH; +DULoxetine 20MG CAP (CYMBALTA) PO SCH; +GABAPENTIN 300 MG CAP PO SCH
[2024-05-09 11:48] VITALS: TEMP 97
[2024-05-09] MEDS ORDERED: ROSUVASTATIN 10 MG TAB (CRESTOR) PO SCH (12:00)
[2024-05-09 12:42] LABS: BASO # 0.1 10^3/uL (0.0-0.2); BASO % 0.5 % (0.0-1.0); EOS # 0.1 10^3/uL (0.0-0.5); EOS % 1.1 % (0.0-3.0); HEMATOCRIT 34.1 % (36.0-47.0); LYMPH # 0.6 10^3/uL (1.5-5.0); LYMPH % 5.6 % (24.0-44.0); MEAN CORPUSCULAR HEMOGLOBIN 26.6 pg (27.0-33.0); MEAN CORPUSCULAR HGB CONC 32.3 g/dl (32.0-36.5); MEAN CORPUSCULAR VOLUME 82.4 fl (80.0-96.0); MONO # 0.7 10^3/uL (0.0-0.8); MONO % 6.6 % (2.0-8.0); NEUTROPHILS # 8.5 10^3/uL (1.5-8.5); NEUTROPHILS % 85.8 % (36.0-66.0); PLATELET COUNT, AUTOMATED 325 10^3/uL (150-450); RED BLOOD COUNT 4.14 10^6/uL (4.00-5.40); WHITE BLOOD COUNT 9.9 10^3/uL (4.0-10.0)
[2024-05-09] MEDS: ONDANSETRON 4MG 2ML VIAL IV PRN (12:50)
[2024-05-09] MEDS: MORPHINE 2 MG/ML 1ML VIAL IV PRN (12:51)
[2024-05-09 13:08] LABS: CALCIUM LEVEL 9.1 MG/DL (8.3-10.6); CREATININE FOR GFR 2.41 MG/DL (0.55-1.30); MAGNESIUM LEVEL 2.3 MG/DL (1.8-2.4); POTASSIUM SERUM 4.3 MMOL/L (3.5-5.1)
[2024-05-09 13:12] LABS: FREE T4 0.86 NG/DL (0.89-1.76)
[2024-05-09 13:13] LABS: THYROID STIMULATING HORMONE 0.631 uIU/ML (0.55-4.78)
[2024-05-09] MEDS ORDERED: ACET-683 PO (14:01)
[2024-05-09] MEDS ORDERED: AMLO1TAB25 PO (14:01)
[2024-05-09] MEDS ORDERED: GABA-1172 PO (14:04)
[2024-05-09] MEDS ORDERED: BACT800T5 PO (14:04)
[2024-05-09] MEDS ORDERED: PRAM0.252 PO (14:04)
[2024-05-09] MEDS ORDERED: SENN-186 PO (14:04)
[2024-05-09] MEDS ORDERED: VITA500045 PO (14:04)
[2024-05-09] MEDS ORDERED: FARX1TAB3 PO (14:07)
[2024-05-09] MEDS ORDERED: XARE2.5T PO (14:07)
[2024-05-09] MEDS ORDERED: HYDR-161 PO (14:07)
[2024-05-09] MEDS ORDERED: DULO20CA27 PO (14:07)
[2024-05-09] MEDS ORDERED: HOME MED LIST COMPLETE! XX SCH (14:10)
[2024-05-09 15:31] VITALS: BP 133/94; O2SAT 95
[2024-05-09] MEDS: NS (Normal Saline) 0.9% 1,000 ML IV SCH (15:37)
[2024-05-09] MEDS ORDERED: SENNA 8.6 MG TAB (SENOKOT) PO PRN (16:05)
[2024-05-09] MEDS ORDERED: LR 1,000 ML IV ONE (16:05)
[2024-05-09] MEDS ORDERED: MIRALAX *UNIT DOSE* 17GM PACKET PO PRN (16:05)
[2024-05-09] MEDS ORDERED: oxyCODONE 5MG TAB PO PRN (16:05)
[2024-05-09] MEDS ORDERED: traMADol 50 MG TAB PO ONE (16:05)
[2024-05-09] MEDS ORDERED: BISACODYL 5MG TAB PO PRN (16:05)
[2024-05-09] MEDS ORDERED: NALOXONE INJ 0.4MG/1ML VIAL IV PRN (16:05)
[2024-05-09] MEDS ORDERED: AMITRIPTYLINE 50 MG TAB PO PRN (16:10)
[2024-05-09] MEDS ORDERED: ANALGESIC BALM CRM 3OZ TOP SCH (17:00)
[2024-05-09 17:53] LABS: CK-MB VALUE MASS 13.4 NG/ML (<3.6)
[2024-05-09 17:55] LABS: MB/CK RELATIVE INDEX 2.94 (< OR =4)
[2024-05-09] MEDS ORDERED: ACETAMINOPHEN 500 MG TAB PO SCH (18:00)
[2024-05-09] MEDS ORDERED: PRAMIPEXOLE 0.25 MG TAB PO SCH (21:00)
[2024-05-09] MEDS ORDERED: RIVAROXABAN 2.5MG TABLET (XARELTO) PO SCH (21:00)
[2024-05-09] MEDS ORDERED: METOPROLOL SUCC (TopROL XL) 100MG *XL* TAB PO SCH (21:00)
[2024-05-09] MEDS ORDERED: **hydrALAZINE** 10 MG TAB PO SCH (21:00)
== END 2024-05-09 16:25 | disposition home or self-care (01) ==
LOC: M ED 11:40 → M ED INP 11:41
PROVIDERS: ADMIT General Practice; ATTEND General Practice
DX: N17.9 Acute kidney failure, unspecified (principal); R55 Syncope and collapse; M25.551 Pain in right hip; M25.552 Pain in left hip; D50.9 Iron deficiency anemia, unspecified; Z87.19 Personal history of other diseases of the digestive system; Z91.81 History of falling; Z91.198 Patient's noncompliance with other medical treatment and regimen for other reason; N18.30 Chronic kidney disease, stage 3 unspecified; I25.10 Atherosclerotic heart disease of native coronary artery without angina pectoris; I73.9 Peripheral vascular disease, unspecified; E11.22 Type 2 diabetes mellitus with diabetic chronic kidney disease; I12.9 Hypertensive chronic kidney disease with stage 1 through stage 4 chronic kidney disease, or unspecified chronic kidney disease; E78.5 Hyperlipidemia, unspecified; E11.42 Type 2 diabetes mellitus with diabetic polyneuropathy; E55.9 Vitamin D deficiency, unspecified; K31.819 Angiodysplasia of stomach and duodenum without bleeding; Z95.5 Presence of coronary angioplasty implant and graft; Z95.828 Presence of other vascular implants and grafts; Z90.49 Acquired absence of other specified parts of digestive tract; Z90.89 Acquired absence of other organs; Z87.442 Personal history of urinary calculi; Z80.1 Family history of malignant neoplasm of trachea, bronchus and lung; Z80.42 Family history of malignant neoplasm of prostate; Z82.49 Family history of ischemic heart disease and other diseases of the circulatory system; Z87.891 Personal history of nicotine dependence; Z88.0 Allergy status to penicillin; Z88.8 Allergy status to other drugs, medicaments and biological substances; Z79.899 Other long term (current) drug therapy; Z79.02 Long term (current) use of antithrombotics/antiplatelets; Z79.01 Long term (current) use of anticoagulants

== ENCOUNTER 2024-05-10 21:03 | Inpatient (IN) | payer MEDICARE ==
[~2024-05-10] VITALS: Ht 157.5 cm; Wt 69.0 kg
[~2024-05-10 21:03] MED LIST changes: +ACET-683 PO; +AMLO1TAB25 PO; +BACT800T5 PO; -CLOPIDOGREL 75 MG TAB PO SCH; -DAPAGLIFLOZIN PROPANEDIOL 10MG TABLET (FARXIGA) PO SCH; +DULO20CA27 PO; -DULoxetine 20MG CAP (CYMBALTA) PO SCH; +FARX1TAB3 PO; +GABA-1172 PO; -GABAPENTIN 300 MG CAP PO SCH; +HYDR-161 PO; +PRAM0.252 PO; +SENN-186 PO; +VITA500045 PO; +XARE2.5T PO
[2024-05-10 22:40] LABS: BASO # 0.1 10^3/uL (0.0-0.2); BASO % 0.8 % (0.0-1.0); EOS # 0.2 10^3/uL (0.0-0.5); EOS % 2.4 % (0.0-3.0); HEMATOCRIT 34.7 % (36.0-47.0); HEMOGLOBIN 11.2 g/dl (12.0-15.5); LYMPH # 0.9 10^3/uL (1.5-5.0); LYMPH % 11.4 % (24.0-44.0); MEAN CORPUSCULAR HEMOGLOBIN 26.3 pg (27.0-33.0); MEAN CORPUSCULAR HGB CONC 32.3 g/dl (32.0-36.5); MEAN CORPUSCULAR VOLUME 81.5 fl (80.0-96.0); MONO # 0.6 10^3/uL (0.0-0.8); MONO % 7.9 % (2.0-8.0); NEUTROPHILS % 77.1 % (36.0-66.0); PLATELET COUNT, AUTOMATED 313 10^3/uL (150-450); RED BLOOD COUNT 4.26 10^6/uL (4.00-5.40); WHITE BLOOD COUNT 7.8 10^3/uL (4.0-10.0)
[2024-05-10 23:03] LABS: ALBUMIN 3.2 G/DL (3.2-5.2); ALKALINE PHOSPHATASE 150 U/L (35-104); ALT/SGPT 75 U/L (7.0-40); AST/SGOT 113 U/L (<34); BILIRUBIN,DIRECT < 0.1 MG/DL (<0.4); BILIRUBIN,TOTAL 0.2 MG/DL (0.3-1.2); BLOOD UREA NITROGEN 28 MG/DL (9-23); CALCIUM LEVEL 9.5 MG/DL (8.3-10.6); CARBON DIOXIDE LEVEL 19 MMOL/L (20-31); CHLORIDE LEVEL 108 MMOL/L (98-107); GLOMERULAR FILTRATION RATE 16.3 (>39); GLUCOSE, FASTING 82 MG/DL (74-106); POTASSIUM SERUM 4.3 MMOL/L (3.5-5.1); SODIUM LEVEL 137 MMOL/L (136-145)
[2024-05-10 23:05] LABS: THYROID STIMULATING HORMONE 1.236 uIU/ML (0.55-4.78)
[2024-05-10] MEDS: NS (Normal Saline) 0.9% 1,000 ML IV SCH (23:21)
[2024-05-10] MEDS: LIDOCAINE 2% 5ML JELLY UROJET TOP ONE (23:55)
[2024-05-11 00:54] LABS: VENOUS BASE EXCESS -10.4 (-2.0-2.0); VENOUS HCO3 16.2 MMOL/L (23.0-27.0); VENOUS O2 SATURATION 94.7 % (60.0-80.0); VENOUS PARTIAL PRESSURE CO2 38.5 mmHg (38.0-50.0); VENOUS PARTIAL PRESSURE O2 81.8 mmHg (30.0-50.0); VENOUS PH 7.242 UNITS (7.330-7.430); VENOUS STANDARD HCO3 16.1 MMOL/L; VENOUS TOTAL CO2 17.4 MMOL/L (24.0-28.0)
[2024-05-11] MEDS ORDERED: FERR1TAB8 PO (01:11)
[2024-05-11] MEDS ORDERED: BACTDSTA PO (01:11)
[2024-05-11 01:12] LABS: INR 1.22; PARTIAL THROMBOPLASTIN TIME 39.3 SECONDS (24.8-34.2); PROTHROMBIN TIME 15.7 SECONDS (12.5-14.5)
[2024-05-11] MEDS ORDERED: HOME MED LIST COMPLETE! XX SCH (01:15)
[2024-05-11 01:21] LABS: CK-MB VALUE MASS 13.8 NG/ML (<3.6); ETHYL ALCOHOL (ETHANOL) 0.007 % (0.000-0.010)
[2024-05-11 01:23] LABS: CPK CREATINE PHOSPHOKINASE 445 U/L (34-145); MAGNESIUM LEVEL 2.3 MG/DL (1.8-2.4); PHOSPHORUS LEVEL 3.8 MG/DL (2.4-5.1); SALICYLATE LEVEL < 3.0 MG/DL (<30)
[2024-05-11 01:57] LABS: CHOLESTEROL LEVEL 92 MG/DL (<200); LDL CHOLESTEROL 17.4 MG/DL (<100); TRIGLYCERIDES LEVEL 173 MG/DL (<150)
[2024-05-11 02:12] LABS: HEMOGLOBIN A1c 5.8 % (4.0-6.0)
[2024-05-11] MEDS: NS 500 ML IV ONE (02:40)
[2024-05-11 03:02] LABS: CK-MB VALUE MASS 18.5 NG/ML (<3.6)
[2024-05-11 03:04] LABS: MB/CK RELATIVE INDEX 4.54 (< OR =4)
[2024-05-11] MEDS: SODIUM BICARBONATE 150 MEQ in D5W 1,000 ML IV SCH (03:10)
[2024-05-11] MEDS: diphenhydrAMINE 50MG/ML VIAL IM PRN (03:40)
[2024-05-11] MEDS: HALOPERIDOL LACTATE 5MG/ML VIAL IM PRN (03:40)
[2024-05-11] MEDS ORDERED: HALOPERIDOL LACTATE 5MG/ML VIAL As Ordered ONE (03:41)
[2024-05-11] MEDS ORDERED: diphenhydrAMINE 50MG/ML VIAL As Ordered ONE (03:41)
[2024-05-11 04:26] LABS: KETONE, URINE AUTO RFX NEGATIVE (NEGATIVE); LEUKOCYTE ESTERASE UR AUTO RFX NEGATIVE (NEGATIVE); MUCUS, URINE RFX SMALL (NEGATIVE); NITRITE, URINE AUTO RFX NEGATIVE (NEGATIVE); RBC, URINE AUTO RFX 1 /HPF (0-3); SQUAM EPITHELIAL CELL UR AURFX 1 /HPF (0-6); WBC, URINE AUTO RFX 4 /HPF (0-3)
[2024-05-11 04:51] LABS: AMPHETAMINES LEVEL URINE NEGATIVE (NEGATIVE); BARBITURATES URINE NEGATIVE (NEGATIVE); BENZODIAZEPINES URINE NEGATIVE (NEGATIVE); CANNABINOIDS URINE NEGATIVE (NEGATIVE); COCAINE METABOLITE URINE NEGATIVE (NEGATIVE); METHADONE URINE NEGATIVE (NEGATIVE); PHENCYCLIDINE URINE NEGATIVE (NEGATIVE)
[2024-05-11 04:53] LABS: CK-MB VALUE MASS 17.7 NG/ML (<3.6); OPIATES URINE POSITIVE (NEGATIVE)
[2024-05-11 04:55] LABS: MB/CK RELATIVE INDEX 4.22 (< OR =4)
[2024-05-11 06:37] LABS: VENOUS BASE EXCESS -8.6 (-2.0-2.0); VENOUS HCO3 17.6 MMOL/L (23.0-27.0); VENOUS O2 SATURATION 94.5 % (60.0-80.0); VENOUS PARTIAL PRESSURE CO2 39.1 mmHg (38.0-50.0); VENOUS PARTIAL PRESSURE O2 81.5 mmHg (30.0-50.0); VENOUS PH 7.272 UNITS (7.330-7.430); VENOUS STANDARD HCO3 17.5 MMOL/L; VENOUS TOTAL CO2 18.8 MMOL/L (24.0-28.0)
[2024-05-11 07:06] LABS: CALCIUM LEVEL 8.7 MG/DL (8.3-10.6); CREATININE FOR GFR 2.78 MG/DL (0.55-1.30); GLOMERULAR FILTRATION RATE 17.8 (>39); POTASSIUM SERUM 3.8 MMOL/L (3.5-5.1)
[2024-05-11] MEDS: **hydrALAZINE** 10 MG TAB PO SCH (09:00)
[2024-05-11] MEDS: DOCUSATE SODIUM 100MG CAPSULE PO SCH (09:32)
[2024-05-11] MEDS ORDERED: GLUCAGON INJ 1MG VIAL SC PRN (10:30)
[2024-05-11] MEDS ORDERED: DEXTROSE 50% 50ML SYRINGE IV PRN (10:30)
[2024-05-11] MEDS ORDERED: GLUCOSE 4 GM CHEW PO PRN (10:30)
[2024-05-11] MEDS ORDERED: RIVAROXABAN 2.5MG TABLET (XARELTO) PO SCH (10:45)
[2024-05-11] MEDS: CLOPIDOGREL 75 MG TAB PO SCH (11:40)
[2024-05-11] MEDS: FERROUS SULFATE 325MG TAB PO SCH (11:40)
[2024-05-11] MEDS: OMEPRAZOLE 20MG CAP PO SCH (11:41)
[2024-05-11] MEDS: INSULIN LISPRO (NovoLOG) PER UNIT SC SCH ×2 (12:00→21:00)
[2024-05-11] MEDS ORDERED: SENNA 8.6 MG TAB (SENOKOT) PO SCH (12:00)
[2024-05-11] MEDS: SENNA 8.6 MG TAB (SENOKOT) PO SCH (12:14)
[2024-05-11] MEDS: RIVAROXABAN 2.5MG TABLET (XARELTO) PO SCH (12:15)
[2024-05-11] MEDS: PRAMIPEXOLE 0.25 MG TAB PO SCH (12:15)
[2024-05-11 16:15] VITALS: BP 155/82; TEMP 97.7; O2SAT 95
[2024-05-11 16:39] LABS: CALCIUM LEVEL 8.2 MG/DL (8.3-10.6); CREATININE FOR GFR 2.66 MG/DL (0.55-1.30); GLOMERULAR FILTRATION RATE 18.7 (>39); POTASSIUM SERUM 3.6 MMOL/L (3.5-5.1)
[2024-05-11] MEDS: ACETAMINOPHEN 325 MG TAB PO PRN (17:00)
[2024-05-11 20:30] VITALS: BP 132/58; TEMP 97.1; O2SAT 97
[2024-05-11] MEDS: GABAPENTIN 300 MG CAP PO SCH (20:38)
[2024-05-11] MEDS: ROSUVASTATIN 10 MG TAB (CRESTOR) PO SCH (20:39)
[2024-05-11] MEDS: DULoxetine 20MG CAP (CYMBALTA) PO SCH (20:39)
[2024-05-11] MEDS: METOPROLOL SUCC (TopROL XL) 100MG *XL* TAB PO SCH (20:41)
[2024-05-11 20:57] VITALS: BP 132/58; PULSE 83; O2SAT 97
[2024-05-11 23:27] VITALS: BP 139/96; TEMP 97.4; O2SAT 96
[2024-05-12 03:50] VITALS: BP 122/56; TEMP 97.5; O2SAT 94
[2024-05-12 04:00] VITALS: BP 122/56; PULSE 73; O2SAT 94
[2024-05-12 06:44] LABS: HEMATOCRIT 30.4 % (36.0-47.0); HEMOGLOBIN 9.8 g/dl (12.0-15.5); MEAN CORPUSCULAR HEMOGLOBIN 26.1 pg (27.0-33.0); MEAN CORPUSCULAR HGB CONC 32.2 g/dl (32.0-36.5); MEAN CORPUSCULAR VOLUME 81.1 fl (80.0-96.0); PLATELET COUNT, AUTOMATED 285 10^3/uL (150-450); RED BLOOD COUNT 3.75 10^6/uL (4.00-5.40); WHITE BLOOD COUNT 5.7 10^3/uL (4.0-10.0)
[2024-05-12 07:18] LABS: ALBUMIN 2.4 G/DL (3.2-5.2); ALKALINE PHOSPHATASE 106 U/L (35-104); ALT/SGPT 41 U/L (7.0-40); AST/SGOT 43 U/L (<34); BILIRUBIN,TOTAL < 0.2 MG/DL (0.3-1.2); BLOOD UREA NITROGEN 18 MG/DL (9-23); CALCIUM LEVEL 8.2 MG/DL (8.3-10.6); CARBON DIOXIDE LEVEL 31 MMOL/L (20-31); CHLORIDE LEVEL 103 MMOL/L (98-107); CPK CREATINE PHOSPHOKINASE 258 U/L (34-145); CREATININE FOR GFR 2.33 MG/DL (0.55-1.30); GLOMERULAR FILTRATION RATE 21.8 (>39); GLUCOSE, FASTING 120 MG/DL (74-106); MAGNESIUM LEVEL 1.9 MG/DL (1.8-2.4); POTASSIUM SERUM 3.2 MMOL/L (3.5-5.1); SODIUM LEVEL 142 MMOL/L (136-145); TOTAL PROTEIN 4.8 G/DL (5.7-8.2)
[2024-05-12 08:08] VITALS: BP 144/67; TEMP 97.1; O2SAT 97
[2024-05-12 08:21] VITALS: BP 144/67
[2024-05-12 09:00] VITALS: PULSE 78
[2024-05-12] MEDS: POTASSIUM CHLORIDE 10MEQ SR TABLET PO ONE (10:11)
[2024-05-12 12:08] VITALS: BP 130/65; TEMP 97.5; O2SAT 96
[2024-05-15] MEDS ORDERED: VITAMIN D 50,000 UNITS CAPSULE (ERGOCALCIFEROL 1.25MG) PO SCH (09:00)
== END 2024-05-12 16:38 | disposition home or self-care (01) | DRG 683 ==
LOC: M ED 21:03 → M ED INP 23:54 → M PCU 05-11 16:17
PROVIDERS: ADMIT Family Medicine; ATTEND Student in an Organized Health Care Education/Training Program
PROC: B246ZZZ Ultrasonography of Right and Left Heart (ICD-10-PCS; principal; 2024-05-11)
DX: N17.9 Acute kidney failure, unspecified (principal); M62.82 Rhabdomyolysis; E87.20 Acidosis, unspecified; R29.6 Repeated falls; I25.10 Atherosclerotic heart disease of native coronary artery without angina pectoris; E11.51 Type 2 diabetes mellitus with diabetic peripheral angiopathy without gangrene; E11.22 Type 2 diabetes mellitus with diabetic chronic kidney disease; N18.30 Chronic kidney disease, stage 3 unspecified; D50.9 Iron deficiency anemia, unspecified; I12.9 Hypertensive chronic kidney disease with stage 1 through stage 4 chronic kidney disease, or unspecified chronic kidney disease; F32.A Depression, unspecified; E78.5 Hyperlipidemia, unspecified; Z66 Do not resuscitate; E11.42 Type 2 diabetes mellitus with diabetic polyneuropathy; G25.81 Restless legs syndrome; E55.9 Vitamin D deficiency, unspecified; M47.814 Spondylosis without myelopathy or radiculopathy, thoracic region; M85.89 Other specified disorders of bone density and structure, multiple sites; M19.011 Primary osteoarthritis, right shoulder; M19.012 Primary osteoarthritis, left shoulder; R33.9 Retention of urine, unspecified; I95.2 Hypotension due to drugs; N13.9 Obstructive and reflux uropathy, unspecified; T38.3X5A Adverse effect of insulin and oral hypoglycemic [antidiabetic] drugs, initial encounter; E86.1 Hypovolemia; Z86.73 Personal history of transient ischemic attack (TIA), and cerebral infarction without residual deficits; Z79.02 Long term (current) use of antithrombotics/antiplatelets; Z79.01 Long term (current) use of anticoagulants; Z79.899 Other long term (current) drug therapy; Z88.0 Allergy status to penicillin; Z90.49 Acquired absence of other specified parts of digestive tract; Z95.5 Presence of coronary angioplasty implant and graft; Z87.891 Personal history of nicotine dependence; Z91.040 Latex allergy status; Z89.411 Acquired absence of right great toe

== ENCOUNTER → 2024-06-07 | Outpatient (REF) | payer MEDICARE ==
[~2024-06-07] MED LIST changes: +BACTDSTA PO; +FERR1TAB8 PO
[2024-06-09 11:39] LABS: PERCENT SATURATION 13.6 % (13.2-45.0)
== END ==
LOC: M LAB REF 17:16
PROVIDERS: ATTEND Internal Medicine
DX: N18.4 Chronic kidney disease, stage 4 (severe) (principal); D50.9 Iron deficiency anemia, unspecified

== ENCOUNTER 2024-09-02 12:33 | Outpatient (CLI) | payer MEDICARE ==
[~2024-09-02] VITALS: Ht 157.5 cm; Wt 68.1 kg
[~2024-09-02 12:33] MED LIST changes: +ALBUTEROL SULFATE 2.5 MG/0.5 ML INH CONCENTRATE NEB SOLN INH PRN; +EPINEPHrine INJ 1 MG/ML 1ML AMP IM PRN; +diphenhydrAMINE 50 MG/ML VIAL IV PRN
[2024-09-02 13:00] VITALS: BP 165/72; O2SAT 95
[2024-09-02] MEDS: ACETAMINOPHEN 650 MG PO ONE (13:20)
[2024-09-02] MEDS: FERRIC CARBOXYMALTOSE 750 MG (VIAL MATE) IN 100ML NS IV ONE (13:20)
[2024-09-02] MEDS ORDERED: NS (Normal Saline) 0.9% 1,000 ML IV SCH (13:30)
[2024-09-02 14:00] VITALS: BP 168/75; O2SAT 92
== END 2024-09-02 14:00 ==
LOC: M INFU 12:33
PROVIDERS: ATTEND Internal Medicine
DX: D50.9 Iron deficiency anemia, unspecified (principal); Z88.0 Allergy status to penicillin; Z91.040 Latex allergy status
CPT/HCPCS: 96365; J1439

== ENCOUNTER → 2024-09-13 | Outpatient (REF) | payer MEDICARE ==
[~2024-09-13] MED LIST changes: -ALBUTEROL SULFATE 2.5 MG/0.5 ML INH CONCENTRATE NEB SOLN INH PRN; -EPINEPHrine INJ 1 MG/ML 1ML AMP IM PRN; -diphenhydrAMINE 50 MG/ML VIAL IV PRN
[2024-09-13 18:22] LABS: IRON (FE) 78.0 UG/DL (50-170); PERCENT SATURATION 34.1 % (13.2-45.0)
== END ==
LOC: M LAB REF 17:27
PROVIDERS: ATTEND Nurse Practitioner Family
DX: D50.9 Iron deficiency anemia, unspecified (principal)

== ENCOUNTER → 2024-10-10 | Outpatient (REF) | payer MEDICARE ==
[~2024-10-10] MED LIST changes: +ERGO125013 PO; -VITA500045 PO
[2024-10-10 15:36] LABS: PHOSPHORUS LEVEL 3.6 MG/DL (2.4-5.1)
[2024-10-11 13:47] LABS: HEPATITIS C VIRUS ABY INDEX < 0.02 INDEX (<0.8)
== END ==
LOC: M LAB REF 14:24
PROVIDERS: ATTEND Internal Medicine
DX: N18.4 Chronic kidney disease, stage 4 (severe) (principal)

== ENCOUNTER → 2024-12-26 | Outpatient (REF) | payer MEDICARE | LOC: M LAB REF 14:26 | PROVIDERS: ATTEND Internal Medicine | DX: D50.9 Iron deficiency anemia, unspecified (principal) ==